=== PATIENT | male | born 1960 | race Two or more races ===

== ENCOUNTER 2016-05-21 06:42 | Emergency (ER) | payer OTHER ==
[2016-05-21] MEDS ORDERED: NORMAL SALINE 1000 ML 1,000 ML IV ONE ×2 (09:45)
--- NOTE | 2016-05-21 09:45 | ER Document Report ---
ED Blood Sugar Problem - General Chief Complaint: High Blood Sugar Stated Complaint: SUGAR PROBLEMS Time seen by provider: 09:45 Mode of Arrival: Ambulatory Information source: Patient Notes: He hasn't had his medications for 3 days he left it at the [facility]. He has prescriptions at the pharmacy that he can get. His ad operations intern is Dr. Santiago. takes 2000 metformin at once, glimiperide 4mg bid, and Toujeo nightly. TRAVEL OUTSIDE OF THE [place] IN LAST 30 DAYS: No - Related Data Allergies/Adverse Reactions: Penicillins Allergy (Unknown, Verified 05/21/16 08:18) Past Medical History - General Information source: Patient - Social History Smoking Status: Current Every Day Smoker Frequency of alcohol use: None Drug Abuse: None Lives with: Family Family History: Reviewed & Not Pertinent - Past Medical History Cardiac Medical History: Reports: Hx Hypercholesterolemia - no meds, Hx Hypertension Endocrine Medical History: Reports: Hx Diabetes Mellitus Type 2 Renal/ Medical History: Denies: Hx Peritoneal Dialysis Psychiatric Medical History: Reports: Hx Depression Past Surgical History: Reports: Hx Bowel Surgery - cancer, Hx Cholecystectomy - Immunizations Hx Diphtheria, Pertussis, Tetanus Vaccination: Yes Review of Systems - Review of Systems Constitutional: No symptoms reported EENT: No symptoms reported Cardiovascular: No symptoms reported Respiratory: No symptoms reported Gastrointestinal: No symptoms reported Genitourinary: No symptoms reported Male Genitourinary: No symptoms reported Musculoskeletal: No symptoms reported Skin: No symptoms reported Hematologic/Lymphatic: No symptoms reported Neurological/Psychological: No symptoms reported Physical Exam - Vital signs Vitals: Temp Pulse Resp BP Pulse Ox 98.0 F 90 18 127/87 H 97 05/21/16 06:49 05/21/16 06:49 05/21/16 06:49 05/21/16 06:49 05/21/16 06:49 Interpretation: Normal - General General appearance: Appears well, Alert - HEENT Head: Normocephalic, Atraumatic Eyes: Normal Pupils: PERRL Pharynx: Normal Neck: Supple - Respiratory Respiratory status: No respiratory distress Chest status: Nontender Breath sounds: Normal Chest palpation: Normal - Cardiovascular Rhythm: Regular Heart sounds: Normal auscultation Murmur: No - Abdominal Inspection: Normal Distension: No distension Bowel sounds: Normal Tenderness: Nontender Organomegaly: No organomegaly - Back Back: Normal, Nontender - Extremities General upper extremity: Normal inspection, Nontender, Normal color, Normal ROM , Normal temperature General lower extremity: Normal inspection, Nontender, Normal color, Normal ROM , Normal temperature, Normal weight bearing. No: Cyndi's sign - Neurological Neuro grossly intact: Yes Cognition: Normal Orientation: AAOx4 Sarath Coma Scale Eye Opening: Spontaneous Sarath Coma Scale Verbal: Oriented Sarath Coma Scale Motor: Obeys Commands Sarath Coma Scale Total: 15 Speech: Normal Motor strength normal: LUE, RUE, LLE, RLE Sensory: Normal - Psychological Associated symptoms: Normal affect, Normal mood - Skin Skin Temperature: Warm Skin Moisture: Dry Skin Color: Normal Skin irregularity: negative: Rash Course - Re-evaluation Re-evalutation: 05/21/16 09:[address] ribeiro about tx and disposition per [facility] guidelines. 05/21/16 11:39 glucose down, meds given, has prescriptions at pharmacy that he can fill since his meds will not be brought home by friend until tomorrow. - Vital Signs Vital signs: Temp Pulse Resp BP Pulse Ox 97.6 F 73 18 154/86 H 99 05/21/16 11:36 05/21/16 11:36 05/21/16 08:05 05/21/16 11:36 05/21/16 11:36 - Laboratory Result Diagrams: 05/21/16 08:57 05/21/16 08:57 Laboratory results interpreted by me: 05/21/16 05/21/16 05/21/16 06:56 08:57 09:43 Glucose 347 H POC Glucose 348 H 322 H AST 77 H ALT 116 H 05/21/16 11:02 Glucose POC Glucose 295 H AST ALT Discharge - Discharge Clinical Impression: Hyperglycemia Diabetes Qualifiers: Diabetes mellitus type: type 2 Diabetes mellitus complication status: without complication Diabetes mellitus intermediate frame tender insulin use: with mcc use Qualified Code(s): E11.9 - Type 2 diabetes mellitus without complications Condition: Good Disposition: HOME, SELF-CARE Instructions: Diabetes ([facility]) Additional Instructions: go directly to the pharmacy and get your medication since your friend is not coming till tomorrow with your insulin and oral medications Return to the emergency room any concerns Keep track closely on your glucose today. Forms: Return to Work
[2016-05-21 09:55] LABS: ABSOLUTE LYMPHOCYTES (AUTO) 1.3 10^3/uL (0.5-4.7); ABSOLUTE MONOCYTES (AUTO) 0.5 10^3/uL (0.1-1.4); ABSOLUTE NEUT (AUTO) 3.5 10^3/uL (1.7-8.2); BASOPHILS % (AUTO) 0.9 % (0-2); EOSINOPHILS % (AUTO) 0.8 % (0-6); HEMOGLOBIN 16.6 g/dL (13.5-17.0); HGB HCT DIFFERENCE 2.8; LYMPHOCYTES % (AUTO) 24.3 % (13-45); MEAN CORPUSCULAR HEMOGLOBIN 30.7 pg (27.0-33.4); MEAN CORPUSCULAR HGB CONC 35.4 g/dL (32.0-36.0); MEAN CORPUSCULAR VOLUME 87 fl (80-97); MONOCYTES % (AUTO) 9.2 % (3-13); RED BLOOD COUNT 5.41 10^6/uL (4.35-5.55); RED CELL DISTRIBUTION WIDTH 13.5 % (11.5-14.0); SEGMENTED NEUTROPHILS % (AUTO) 64.8 % (42-78); WHITE BLOOD COUNT 5.4 10^3/uL (4.0-10.5)
[2016-05-21 10:00] LABS: ALANINE AMINOTRANSFERASE 116 U/L (21-72); ALBUMIN 3.7 g/dL (3.5-5.0); ALKALINE PHOSPHATASE 105 U/L (38-126); ANION GAP 12 (5-19); ASPARTATE AMINO TRANSFERASE 77 U/L (17-59); BLOOD UREA NITROGEN 15 mg/dL (7-20); CALCIUM 9.1 mg/dL (8.4-10.2); CARBON DIOXIDE 25 mmol/L (22-30); CHLORIDE 100 mmol/L (98-107); CREATININE RESULT 0.69 mg/dL (0.52-1.25); GLUCOSE 347 mg/dL (75-110); POTASSIUM 3.6 mmol/L (3.6-5.0); SODIUM 137.3 mmol/L (137-145)
[2016-05-21] MEDS ORDERED: METFORMIN HCL 500 MG TABLET PO ONE (10:07)
[2016-05-21] MEDS ORDERED: GLIMEPIRIDE 4 MG TABLET PO ONE (10:11)
[2016-05-21 11:53] VITALS: BP 154/86
== END 2016-05-21 11:42 | disposition home or self-care (01) ==
LOC: ER 06:42
DX: E11.65 Type 2 diabetes mellitus with hyperglycemia (principal); Z79.4 Long term (current) use of insulin; Z79.84 Long term (current) use of oral hypoglycemic drugs; F17.200 Nicotine dependence, unspecified, uncomplicated; I10 Essential (primary) hypertension; Z88.0 Allergy status to penicillin
CPT/HCPCS: 99284; 96360; 36415; 82962; 85025; 80053; J3490; J7030

== ENCOUNTER 2016-09-08 04:14 | Emergency (ER) | payer SELFPAY ==
[2016-09-08 05:53] LABS: ABSOLUTE EOSINOPHILS # (AUTO) 0.1 10^3/uL (0.0-0.6); ABSOLUTE LYMPHOCYTES (AUTO) 2.5 10^3/uL (0.5-4.7); ABSOLUTE MONOCYTES (AUTO) 0.4 10^3/uL (0.1-1.4); ABSOLUTE NEUT (AUTO) 2.8 10^3/uL (1.7-8.2); BASOPHILS % (AUTO) 0.8 % (0-2); EOSINOPHILS % (AUTO) 1.9 % (0-6); HEMATOCRIT 43.1 % (37.9-51.0); HGB HCT DIFFERENCE 1.9; MEAN CORPUSCULAR HEMOGLOBIN 30.1 pg (27.0-33.4); MEAN CORPUSCULAR HGB CONC 34.9 g/dL (32.0-36.0); MEAN CORPUSCULAR VOLUME 86 fl (80-97); MONOCYTES % (AUTO) 7.4 % (3-13); RED BLOOD COUNT 4.99 10^6/uL (4.35-5.55); RED CELL DISTRIBUTION WIDTH 13.5 % (11.5-14.0); SEGMENTED NEUTROPHILS % (AUTO) 47.9 % (42-78); WHITE BLOOD COUNT 5.9 10^3/uL (4.0-10.5)
[2016-09-08 06:28] LABS: ANION GAP 11 (5-19); BLOOD UREA NITROGEN 16 mg/dL (7-20); CALCIUM 9.2 mg/dL (8.4-10.2); CARBON DIOXIDE 26 mmol/L (22-30); CHLORIDE 99 mmol/L (98-107); CREATININE RESULT 0.66 mg/dL (0.52-1.25); POTASSIUM 3.7 mmol/L (3.6-5.0); SODIUM 135.7 mmol/L (137-145)
[2016-09-08 06:35] LABS: GLUCOSE 564 mg/dL (75-110)
--- NOTE | 2016-09-08 06:35 | ER Document Report ---
ED Blood Sugar Problem - General Mode of Arrival: Ambulatory Information source: Patient TRAVEL OUTSIDE OF THE [place] IN LAST 30 DAYS: No - HPI Patient complains to provider of: High Blood Sugar Onset: This morning Associated symptoms: Other - see notes above <ISIDRO WATSON - Last Filed: 09/08/16 07:12> <WAQAS MARSHALL - Last Filed: 09/08/16 13:55> - General Chief Complaint: High Blood Sugar Stated Complaint: HIGH BLOOD SUGAR Time Seen by Provider: 09/08/16 06:00 Notes: 56 year old male with history of insulin dependent diabetes mellitus type II, hypertension, hyperlipidemia, and restless leg syndrome presents to the ED complaining of high blood sugar (>600) that started earlier this morning. Patient states that he felt 'out of sync' so he checked his blood sugar and saw that it was >600. Patient reports that he previously was checking his blood sugar 4 times a day, but has not been checking recently because of 'work stress ' and realizing that his has left him and moved on. Patient denies nausea, vomiting, or diarrhea. Patient is on Glyparamide, Metformin, and Tuojeo (once a day). Patient states that he took his insulin yesterday afternoon, but did not take it this morning after seeing his blood sugar in the 600s. Patient reports that he has run out of Glyparamide and Metformin, and is unable to get them filled because of tight financial situation. Primary Care: [facility] Washer: Dr. Santiago; [place] (ISIDRO WATSON) - Related Data Allergies/Adverse Reactions: Penicillins Allergy (Unknown, Verified 09/08/16 04:22) Past Medical History - General Information source: Patient - Social History Smoking Status: Unknown if Ever Smoked Family History: Reviewed & Not Pertinent - Past Medical History Cardiac Medical History: Reports: Hx Hypercholesterolemia - no meds, Hx Hypertension Endocrine Medical History: Reports: Hx Diabetes Mellitus Type 2 Renal/ Medical History: Denies: Hx Peritoneal Dialysis Psychiatric Medical History: Reports: Hx Depression Past Surgical History: Reports: Hx Bowel Surgery - cancer, Hx Cholecystectomy - Immunizations Hx Diphtheria, Pertussis, Tetanus Vaccination: Yes <ISIDRO WATSON - Last Filed: 09/08/16 07:12> Review of Systems - Review of Systems Constitutional: No symptoms reported EENT: No symptoms reported Cardiovascular: See HPI, Other - elevated blood sugar >600 Respiratory: No symptoms reported Gastrointestinal: No symptoms reported. denies: Diarrhea, Nausea, Vomiting Genitourinary: No symptoms reported Male Genitourinary: No symptoms reported Musculoskeletal: No symptoms reported Skin: No symptoms reported Hematologic/Lymphatic: No symptoms reported Neurological/Psychological: No symptoms reported <ISIDRO WATSON - Last Filed: 09/08/16 07:12> Physical Exam - General General appearance: Alert In distress: None - HEENT Head: Normocephalic, Atraumatic Eyes: Normal Extraocular movements intact: Yes Pupils: PERRL - Respiratory Respiratory status: No respiratory distress Breath sounds: Normal - Cardiovascular Rhythm: Regular Heart sounds: Normal auscultation - Abdominal Inspection: Normal Distension: No distension Tenderness: Nontender. No: Guarding, Rebound - Back Back: Normal - Extremities General upper extremity: Normal inspection, Normal ROM General lower extremity: Normal inspection, Normal ROM - Neurological Neuro grossly intact: Yes Cognition: Normal Orientation: AAOx4 Sarath Coma Scale Eye Opening: Spontaneous Sarath Coma Scale Verbal: Oriented Sarath Coma Scale Motor: Obeys Commands Sarath Coma Scale Total: 15 Speech: Normal - Psychological Associated symptoms: Normal affect, Normal mood - Skin Skin Temperature: Warm Skin Moisture: Dry Skin Color: Normal <FLORA WATSONUR - Last Filed: 09/08/16 07:12> Course - Laboratory Result Diagrams: 09/08/16 05:33 09/08/16 05:33 <SHIRLEYISIDRO - Last Filed: 09/08/16 07:12> - Laboratory Result Diagrams: 09/08/16 05:33 09/08/16 05:33 <WAQAS MARSHALL - Last Filed: 09/08/16 13:55> - Re-evaluation Re-evalutation: 09/08/16 07:07 Patient presents emergency department chief complaint of elevated blood glucose. Says he is out of 2 of his oral hypoglycemics but is been taking his insulin. Primary care physician is invited. He denies any fevers chills cough chest pain shortness of breath nausea vomiting abdominal pain diarrhea constipation urinary symptoms fevers chills or change in appetite. On examination he is well-appearing nontoxic in no acute distress HEENT heart lungs abdomen soft abdomen is soft no tenderness guarding rebound rigidity. Blood sugar is 600 and is not in DKA with him given 10 units regular subcu insulin. In addition that the rest of his labs are stable. Not actively vomiting in his belly is soft nontender. I have given him a family doctor for follow-up status post call them first thing tomorrow morning schedule follow-up appointment to treat and maintain his diabetes medications and additional chronic conditions and discussed reasons for ED return sooner (WAQAS MARSHALL) - Vital Signs Vital signs: Temp Pulse Resp BP Pulse Ox 74 16 145/91 H 98 09/08/16 04:21 09/08/16 07:19 09/08/16 06:21 09/08/16 07:19 - Laboratory Laboratory results interpreted by me: 09/08/16 09/08/16 05:33 05:33 Sodium 135.7 L Glucose 564 H* Urine Glucose (UA) >=500 H Discharge <ISIDRO WATSON - Last Filed: 09/08/16 07:12> <WAQAS MARSHALL - Last Filed: 09/08/16 13:55> - Discharge Clinical Impression: hyperglycemia Condition: Stable Disposition: HOME, SELF-CARE Additional Instructions: Hyperglycemia (High Blood Sugar) You have an abnormally high blood sugar. Not all high blood sugar requires long-term treatment. High blood sugar can be due to medications, , or the stress of illness. (These cases are "borderline diabetes.") If the doctor feels your high blood sugar might resolve with time, you may not require treatment now. You will be scheduled for further evaluation. It's very important that you follow through, to see if the blood sugar returns to normal levels. Uncontrolled high blood sugar leads to early heart disease, strokes, nerve damage, eye damage, and kidney damage. Call the physician if there is faintness, excess sleepiness, or very rapid breathing. Referrals: [facility] [Provider Group] (call in a.m. tomorrow to schedule follow-up appointment in 3-4 days must get refills on all your diabetic medications and consistently seeing a regular primary care physician. Return for increasing worsening or new symptoms) Scribe Attestation: 09/08/16 07:07 I personally performed the services described in the documentation reviewed the documentation recorded by my scribe in my presence and it accurately and completely records my words and actions (WAQAS MARSHALL) Scribe Documentation - Scribe Written by Scribe:: Kirt Larson, 09/08/2016 0715 acting as scribe for :: Partha <ISIDRO WATSON - Last Filed: 09/08/16 07:12>
[2016-09-08 06:43] LABS: APPEARANCE,URINE CLEAR; BILIRUBIN,URINE NEGATIVE (NEGATIVE); GLUCOSE, URINE >=500 mg/dL (NEGATIVE); KETONES,URINE NEGATIVE (NEGATIVE); LEUKOCYTE ESTERASE,URINE NEGATIVE (NEGATIVE); NITRITE,URINE NEGATIVE (NEGATIVE); PROTEIN,URINE NEGATIVE (NEGATIVE); UROBILINOGEN,URINE NEGATIVE mg/dL (<2.0)
[2016-09-08 06:57] VITALS: BP 145/91
[2016-09-08] MEDS ORDERED: INSULIN REG, HUMAN 100 UNIT/ML 3 ML VIAL (PYX) SUBCUT ONE (07:03)
== END 2016-09-08 07:38 | disposition home or self-care (01) ==
LOC: ER 04:14
DX: E11.65 Type 2 diabetes mellitus with hyperglycemia (principal); I10 Essential (primary) hypertension; E78.5 Hyperlipidemia, unspecified; G25.81 Restless legs syndrome; Z79.899 Other long term (current) drug therapy
CPT/HCPCS: 99283; 36415; 82962; 85025; 80048; 81001; J1815

== ENCOUNTER 2016-11-22 02:45 | Emergency (ER) | payer OTHER ==
[2016-11-22 02:54] VITALS: BP 166/90
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
[2016-11-22] MEDS ORDERED: KETOROLAC TROMETHAMINE INJ/PF 30 MG/1 ML SDV IM ONE (03:39)
== END 2016-11-22 03:57 | disposition home or self-care (01) ==
LOC: ER 02:45
DX: M79.1 Myalgia (principal); V87.7XXA Person injured in collision between other specified motor vehicles (traffic), initial encounter; E78.00 Pure hypercholesterolemia, unspecified; I10 Essential (primary) hypertension; E11.9 Type 2 diabetes mellitus without complications; Z90.49 Acquired absence of other specified parts of digestive tract
CPT/HCPCS: 99283; 96372; J1885

== ENCOUNTER 2016-11-25 04:27 | Emergency (ER) | payer OTHER ==
[2016-11-25] MEDS ORDERED: HYDROCODONE/ACETAMINOPHEN 5-325 MG 6 TAB/DSPK PO PRN (06:56)
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
[2016-11-25 07:51] VITALS: BP 158/100
== END 2016-11-25 07:52 | disposition home or self-care (01) ==
LOC: ER 04:27
DX: S16.1XXA Strain of muscle, fascia and tendon at neck level, initial encounter (principal); R51 Headache; M25.552 Pain in left hip; F17.200 Nicotine dependence, unspecified, uncomplicated; E78.00 Pure hypercholesterolemia, unspecified; I10 Essential (primary) hypertension; E11.9 Type 2 diabetes mellitus without complications; Z88.0 Allergy status to penicillin; Z90.49 Acquired absence of other specified parts of digestive tract; V89.2XXA Person injured in unspecified motor-vehicle accident, traffic, initial encounter
CPT/HCPCS: 99284; L0120

== ENCOUNTER 2017-01-10 20:06 | Emergency (ER) | payer OTHER ==
--- NOTE | 2017-01-10 20:33 | ER Document Report ---
ED Medical Screen (RME) - General Chief Complaint: High Blood Sugar Stated Complaint: BLOOD SUGAR PROBLEMS Time Seen by Provider: 01/10/17 20:13 Notes: Patient is a 56-year-old male who presents emergency department complaining of sudden onset headache at approximately 3 PM this evening. He was sitting in his home relaxing when he had the sudden onset headache in the back of his head radiating behind his left eye. He describes it as an ice pick going into his eye. States he has never had a headache like this before. He also states that he has had elevated blood sugars at home since he ran out of his to alf. Patient states that his blood sugars have been about 500s and he has not been able to manage it at home with Lantus alone. He does admit to urinary frequency but denies any lethargy, nausea, vomiting, abdominal pain. TRAVEL OUTSIDE OF THE [place] IN LAST 30 DAYS: No - Related Data Allergies/Adverse Reactions: Penicillins Allergy (Unknown, Verified 11/25/16 07:23) Past Medical History - Social History Chew tobacco use (# tins/day): No Frequency of alcohol use: None Drug Abuse: None - Past Medical History Cardiac Medical History: Reports: Hx Hypercholesterolemia - no meds, Hx Hypertension Endocrine Medical History: Reports: Hx Diabetes Mellitus Type 1, Hx Diabetes Mellitus Type 2 Renal/ Medical History: Denies: Hx Peritoneal Dialysis Psychiatric Medical History: Reports: Hx Depression Past Surgical History: Reports: Hx Bowel Surgery - cancer, Hx Cholecystectomy - Immunizations Hx Diphtheria, Pertussis, Tetanus Vaccination: Yes Physical Exam - Vital signs Vitals: Temp Pulse Resp BP Pulse Ox 98.6 F 82 14 189/101 H 97 01/10/17 20:12 01/10/17 20:12 01/10/17 20:12 01/10/17 20:12 01/10/17 20:12 - General General appearance: Appears well, Alert In distress: None - HEENT Head: Normocephalic, Atraumatic Eyes: Normal Extraocular movements intact: Yes Pupils: PERRL - Respiratory Respiratory status: No respiratory distress Chest status: Nontender Breath sounds: Normal Chest palpation: Normal - Cardiovascular Rhythm: Regular Heart sounds: Normal auscultation, S1 appreciated, S2 appreciated Pulses: Normal: Radial Normal capillary refill: Yes - Neurological Orientation: AAOx4 Sarath Coma Scale Eye Opening: Spontaneous Lillie Coma Scale Verbal: Oriented Lillie Coma Scale Motor: Obeys Commands Lillie Coma Scale Total: 15 Course - Vital Signs Vital signs: Temp Pulse Resp BP Pulse Ox 98.6 F 82 14 200/102 H 97 01/10/17 20:12 01/10/17 20:12 01/10/17 20:12 01/10/17 20:27 01/10/17 20:12
--- NOTE | 2017-01-10 20:59 | RADIOLOGY REPORT (SQ) ---
EXAM DESCRIPTION: CT HEAD WITHOUT COMPLETED DATE/TIME: 01/10/2017 8:34 pm REASON FOR STUDY: sudden onset headache 3pm, HTN COMPARISON: 04/24/2015 TECHNIQUE: Axial images acquired through the brain without intravenous contrast. Images reviewed wi th bone, brain and subdural windows. Images stored on PACS. All CT scanners at this facility use dose modulation, iterative reconstruction, and/or weight based d osing when appropriate to reduce radiation dose to as low as reasonably achievable (ALARA). [facility]: Dose Right [facility]: CareDose [facility]: Dose Right [facility]: Teradose 4D [facility]: Technitrol RADIATION DOSE: Up-to-date CT equipment and radiation dose reduction techniques were employed. CTDIv ol: 64.6 mGy. DLP: 1163 mGy-cm. mGy. LIMITATIONS: None. FINDINGS: VENTRICLES: Normal size and contour. CEREBRUM: No masses. No hemorrhage. No midline shift. No evidence for acute infarction. Normal gra y/white matter differentiation. No areas of low density in the white matter. CEREBELLUM: No masses. No hemorrhage. No alteration of density. No evidence for acute infarction. EXTRAAXIAL SPACES: No fluid collections. No masses. ORBITS AND GLOBE: No intra- or extraconal masses. Normal contour of globe without masses. CALVARIUM: No fracture. PARANASAL SINUSES: No fluid or mucosal thickening. SOFT TISSUES: No mass or hematoma. OTHER: No other significant finding. IMPRESSION: NORMAL BRAIN CT WITHOUT CONTRAST. EVIDENCE OF ACUTE STROKE: NO. COMMENT: Quality ID # [id number]: Final reports with documentation of one or more dose reduction techniques (e.g., Automated exposure control, adjustment of the mA and/or kV according to patient size, use of iterative reconstruction technique) TECHNICAL DOCUMENTATION: JOB ID: [id number]- All Rights Reserved
[2017-01-10 21:20] LABS: ABSOLUTE EOSINOPHILS # (AUTO) 0.1 10^3/uL (0.0-0.6); ABSOLUTE LYMPHOCYTES (AUTO) 1.3 10^3/uL (0.5-4.7); ABSOLUTE MONOCYTES (AUTO) 0.4 10^3/uL (0.1-1.4); ABSOLUTE NEUT (AUTO) 3.9 10^3/uL (1.7-8.2); BASOPHILS % (AUTO) 0.8 % (0-2); HEMATOCRIT 45.1 % (37.9-51.0); HEMOGLOBIN 16.1 g/dL (13.5-17.0); HGB HCT DIFFERENCE 3.2; LYMPHOCYTES % (AUTO) 22.2 % (13-45); MEAN CORPUSCULAR HEMOGLOBIN 31.1 pg (27.0-33.4); MEAN CORPUSCULAR HGB CONC 35.6 g/dL (32.0-36.0); MEAN CORPUSCULAR VOLUME 88 fl (80-97); MONOCYTES % (AUTO) 7.8 % (3-13); RED BLOOD COUNT 5.16 10^6/uL (4.35-5.55); RED CELL DISTRIBUTION WIDTH 14.1 % (11.5-14.0); SEGMENTED NEUTROPHILS % (AUTO) 67.2 % (42-78); WHITE BLOOD COUNT 5.7 10^3/uL (4.0-10.5)
[2017-01-10 21:28] LABS: ALANINE AMINOTRANSFERASE 105 U/L (21-72); ALBUMIN 3.7 g/dL (3.5-5.0); ALKALINE PHOSPHATASE 120 U/L (38-126); ANION GAP 10 (5-19); ASPARTATE AMINO TRANSFERASE 117 U/L (17-59); BILIRUBIN,DIRECT 0.5 mg/dL (0.0-0.4); BLOOD UREA NITROGEN 13 mg/dL (7-20); CARBON DIOXIDE 28 mmol/L (22-30); CHLORIDE 98 mmol/L (98-107); CREATININE RESULT 0.61 mg/dL (0.52-1.25); POTASSIUM 3.6 mmol/L (3.6-5.0); SODIUM 135.6 mmol/L (137-145); TOTAL PROTEIN 6.6 g/dL (6.3-8.2)
[2017-01-10] MEDS ORDERED: NORMAL SALINE 1000 ML 1,000 ML IV ONE (21:28)
[2017-01-10] MEDS ORDERED: PROCHLORPERAZINE EDISYLATE INJ 10 MG/2 ML VIAL IV ONE (21:30)
[2017-01-10] MEDS ORDERED: DIPHENHYDRAMINE HCL 50 MG/ML VIAL IV ONE (21:30)
[2017-01-10] MEDS ORDERED: KETOROLAC TROMETHAMINE INJ/PF 30 MG/1 ML SDV IV ONE (21:31)
--- NOTE | 2017-01-10 21:35 | ER Document Report ---
ED General - General Chief Complaint: High Blood Sugar Stated Complaint: BLOOD SUGAR PROBLEMS Time Seen by Provider: 01/10/17 20:13 Notes: Patient is a 56-year-old male with a past medical history of insulin-dependent type 2 diabetes who presents with concerns of hypoglycemia as well as a headache. Patient states that he is currently out of one of his types of insulin and has had elevated blood sugars since running out of it. He has a history of similar episodes in the past due to difficulty obtaining his medications. He states that when his blood sugars are high, he often develops a headache. He notes that today he has a constant, stabbing, severe pain to his left eye that radiates to the back of his scalp. States this is a typical headache for him in the setting of hypoglycemia. States headache was relatively abrupt in onset and became progressively worse after that. He denies any focal weakness or numbness. No vomiting or constitutional symptoms. He has not had any fever. He has not seen his primary care doctor regarding today's concerns. TRAVEL OUTSIDE OF THE [place] IN LAST 30 DAYS: No - Related Data Allergies/Adverse Reactions: Penicillins Allergy (Unknown, Verified 11/25/16 07:23) Past Medical History - General Information source: Patient - Social History Smoking Status: Current Every Day Smoker Chew tobacco use (# tins/day): No Frequency of alcohol use: None Drug Abuse: None Family History: Reviewed & Not Pertinent - Past Medical History Cardiac Medical History: Reports: Hx Hypercholesterolemia - no meds, Hx Hypertension Endocrine Medical History: Reports: Hx Diabetes Mellitus Type 1, Hx Diabetes Mellitus Type 2 Renal/ Medical History: Denies: Hx Peritoneal Dialysis Psychiatric Medical History: Reports: Hx Depression Past Surgical History: Reports: Hx Bowel Surgery - cancer, Hx Cholecystectomy - Immunizations Hx Diphtheria, Pertussis, Tetanus Vaccination: Yes Review of Systems - Review of Systems Notes: Constitutional: Negative for fever. HENT: Negative for sore throat. Eyes: Negative for visual changes. Cardiovascular: Negative for chest pain. Respiratory: Negative for shortness of breath. Gastrointestinal: Negative for abdominal pain, vomiting or diarrhea. Genitourinary: Negative for dysuria. Musculoskeletal: Negative for back pain. Skin: Negative for rash. Neurological: Positive for headache 10 point ROS negative except as marked above and in HPI. Physical Exam - Vital signs Vitals: Temp Pulse Resp BP Pulse Ox 98.6 F 82 14 189/101 H 97 01/10/17 20:12 01/10/17 20:12 01/10/17 20:12 01/10/17 20:12 01/10/17 20:12 Interpretation: Hypertensive Notes: PHYSICAL EXAMINATION: GENERAL: Well-appearing, well-nourished and in no acute distress. HEAD: Atraumatic, normocephalic. EYES: Pupils equal round and reactive to light, extraocular movements intact, sclera anicteric, conjunctiva are normal. ENT: nares patent, oropharynx clear without exudates. Moist mucous membranes. NECK: Normal range of motion, supple without lymphadenopathy LUNGS: Breath sounds clear to auscultation bilaterally and equal. No wheezes rales or rhonchi. HEART: Regular rate and rhythm without murmurs ABDOMEN: Soft, nontender, normoactive bowel sounds. No guarding, no rebound. No masses appreciated. EXTREMITIES: Normal range of motion, no pitting or edema. No cyanosis. NEUROLOGICAL: Face symmetric. Tongue protrudes midline. Extraocular motions intact. Pupils are 2 mm and equally reactive. Normal speech, normal gait. 5 out of 5 strength in both the distal and proximal upper and lower extremities bilaterally. Sensation is grossly intact throughout. Finger to nose testing normal. Pronator drift normal. PSYCH: Normal mood, normal affect. SKIN: Warm, Dry, normal turgor, no rashes or lesions noted. Course - Re-evaluation Re-evalutation: 01/10/17 21:32 Presentation of asymptomatic hyperglycemia. There is no evidence of HHS or diabetic ketoacidosis on laboratories or based on clinical history. Patient's vitals are within normal limits. They deny any acute focal complaints. Treatment with insulin and IV fluids given here in the emergency department with appropriate response of the blood sugar. No infectious symptoms or complaints of chest pain to suggest ACS or infectious etiology of his hypoglycemia. Patient is certain the source is that he ran out of 1 of his types of insulin, tuejeo. Patient also complained of an acute onset headache which she states her approximate 3:00. Patient has long-standing history of headaches that are identical to this. Headache was not maximal in onset, patient has no focal neurologic deficits, no nuchal rigidity, vital signs within normal limits, no papilledema, and patient is overall well in appearance. Based on clinical history and examination I do not suspect an acute subarachnoid hemorrhage, dural venous sinus thrombosis, acute meningitis, or intercranial mass. Given my low clinical suspicion for any acute life- threatening etiology, I do not feel advanced neuro imaging or laboratory testing is indicated at this time. However, in triage CT the head was obtained based on initial concern of an abrupt onset headache. 01/10/17 22:54 Patient is tolerating oral intake without difficulty. Blood glucose below 500, range is acceptable for discharge. Patient will get a refill of his insulin tomorrow. His headache has resolved. At this time will discharge with return precautions and follow-up recommendations. Verbal discharge instructions given a the bedside and opportunity for questions given. Medication warnings reviewed. Patient is in agreement with this plan and has verbalized understanding of return precautions and the need for primary care follow-up in the next 24-72 hours. - Vital Signs Vital signs: Temp Pulse Resp BP Pulse Ox 98.6 F 82 21 H 170/99 H 95 01/10/17 20:12 01/10/17 20:12 01/10/17 23:01 01/10/17 23:30 01/10/17 23:30 - Laboratory Result Diagrams: 01/10/17 20:53 01/10/17 20:53 Laboratory results interpreted by me: 01/10/17 01/10/17 01/10/17 20:30 20:53 20:53 RDW 14.1 H Sodium 135.6 L Glucose 483 H* POC Glucose 484 H* Direct Bilirubin 0.5 H AST 117 H ALT 105 H Urine Glucose (UA) 01/10/17 01/10/17 21:20 23:12 RDW Sodium Glucose POC Glucose 356 H Direct Bilirubin AST ALT Urine Glucose (UA) >=500 H - Diagnostic Test Radiology reviewed: Image reviewed, Reports reviewed Radiology results interpreted by me: 01/10/17 21:35 CT head: No acute intracranial bleed or evidence of subarachnoid hemorrhage - EKG Interpretation by Me Additional EKG results interpreted by me: 01/11/17 03:48 Sinus rhythm. Rate 78. No ST elevations or depressions. QTC is 442. Discharge - Discharge Clinical Impression: Hyperglycemia, Essential hypertension Headache Qualifiers: Headache type: unspecified Headache chronicity pattern: acute headache Intractability: not intractable Qualified Code(s): R51 - Headache Condition: Good Disposition: HOME, SELF-CARE Additional Instructions: You need to followup urgently with your primary care doctor as your blood sugars were dangerously high today. You did not have any evidence of a dangerous condition associated with these blood sugars at this time. However, it is very important that you get your blood sugars under control. Please take all of your medications exactly as directed. You should avoid foods that are high in carbohydrates and sugary foods. Please return to emergency department immediately if you develop weakness, persistent vomiting, confusion, or any other symptoms that are concerning to you.
[2017-01-10 21:39] LABS: GLUCOSE 483 mg/dL (75-110)
[2017-01-10] MEDS ORDERED: INSULIN REG, HUMAN 100 UNIT/ML 3 ML VIAL (PYX) SUBCUT ONE (22:06)
[2017-01-10 22:31] LABS: APPEARANCE,URINE CLEAR; BILIRUBIN,URINE NEGATIVE (NEGATIVE); GLUCOSE, URINE >=500 mg/dL (NEGATIVE); KETONES,URINE NEGATIVE (NEGATIVE); LEUKOCYTE ESTERASE,URINE NEGATIVE (NEGATIVE); NITRITE,URINE NEGATIVE (NEGATIVE); PROTEIN,URINE NEGATIVE (NEGATIVE); URINE SPECIFIC GRAVITY 1.031; UROBILINOGEN,URINE NEGATIVE mg/dL (<2.0)
[2017-01-10] MEDS ORDERED: PRAMIPEXOLE DI-HCL 0.5 MG TABLET PO ONE (22:53)
[2017-01-10] MEDS ORDERED: PRAMIPEXOLE DI-HCL 0.5 MG TABLET ONE (23:18)
[2017-01-10 23:51] VITALS: BP 170/99
--- NOTE | 2017-01-11 13:05 | EKG REPORT ---
SEVERITY:- ABNORMAL ECG - SINUS RHYTHM PROBABLE LEFT ATRIAL ABNORMALITY PROBABLE LEFT VENTRICULAR HYPERTROPHY : Confirmed by: Ben Melendez 11-Jan-2017 13:04:03
== END 2017-01-10 23:45 | disposition home or self-care (01) ==
LOC: ER 20:06
DX: E11.65 Type 2 diabetes mellitus with hyperglycemia (principal); R51 Headache; I10 Essential (primary) hypertension; Z79.4 Long term (current) use of insulin; F17.200 Nicotine dependence, unspecified, uncomplicated
CPT/HCPCS: 93005; 99284; 96361; 96374; 96375; 36415; 82962; 85025; 80053; 81001; 84484; 70450; 93010; J1200; J1885; J1815; J0780; J3490; J7030

== ENCOUNTER 2017-02-08 18:18 | Emergency (ER) | payer SELFPAY ==
[2017-02-08 18:27] VITALS: BP 133/82
[2017-02-08] MEDS ORDERED: NORMAL SALINE 1000 ML 1,000 ML IV PRN (18:27)
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
[2017-02-08 19:12] LABS: VENOUS BLOOD BASE EXCESS -0.7 mmol/L; VENOUS BLOOD HCO3 25.4 mmol/L (20-32); VENOUS BLOOD PCO2 46.8 mmHg (35-63); VENOUS BLOOD PH 7.35 (7.30-7.42)
[2017-02-08 19:13] LABS: ABSOLUTE BASOPHILS # (AUTO) 0.1 10^3/uL (0.0-0.2); ABSOLUTE EOSINOPHILS # (AUTO) 0.1 10^3/uL (0.0-0.6); ABSOLUTE LYMPHOCYTES (AUTO) 2.8 10^3/uL (0.5-4.7); ABSOLUTE MONOCYTES (AUTO) 0.3 10^3/uL (0.1-1.4); EOSINOPHILS % (AUTO) 1.5 % (0-6); HEMATOCRIT 47.1 % (37.9-51.0); HEMOGLOBIN 16.4 g/dL (13.5-17.0); HGB HCT DIFFERENCE 2.1; LYMPHOCYTES % (AUTO) 44.6 % (13-45); MEAN CORPUSCULAR HEMOGLOBIN 30.4 pg (27.0-33.4); MEAN CORPUSCULAR HGB CONC 34.9 g/dL (32.0-36.0); MEAN CORPUSCULAR VOLUME 87 fl (80-97); MONOCYTES % (AUTO) 5.1 % (3-13); RED BLOOD COUNT 5.41 10^6/uL (4.35-5.55); RED CELL DISTRIBUTION WIDTH 13.8 % (11.5-14.0); SEGMENTED NEUTROPHILS % (AUTO) 47.8 % (42-78); WHITE BLOOD COUNT 6.3 10^3/uL (4.0-10.5)
[2017-02-08 19:15] LABS: APPEARANCE,URINE CLEAR; BILIRUBIN,URINE NEGATIVE (NEGATIVE); GLUCOSE, URINE >=500 mg/dL (NEGATIVE); KETONES,URINE 80 mg/dL (NEGATIVE); LEUKOCYTE ESTERASE,URINE NEGATIVE (NEGATIVE); NITRITE,URINE NEGATIVE (NEGATIVE); PROTEIN,URINE NEGATIVE (NEGATIVE); URINE SPECIFIC GRAVITY 1.036; UROBILINOGEN,URINE NEGATIVE mg/dL (<2.0)
--- NOTE | 2017-02-08 19:29 | ER Document Report ---
ED General - General Chief Complaint: High Blood Sugar Stated Complaint: BLOOD SUGAR ISSUES Time Seen by Provider: 02/08/17 18:27 Mode of Arrival: Ambulatory Information source: Patient Notes: Patient presents complaining of increased stress recently, anxiety symptoms and elevated blood sugar. Patient states he has his NovoLog insulin but is out of his Lantus which he takes every morning. Patient states he has been of his Lantus for the past 2 weeks. Patient additionally reports increased anxiety and stress due to the fact that his girlfriend was recently arrested and he has not been able to get her bonded due to the [place]erson. Patient also reports recently moving and starting a new job. Patient does have an appointment with his primary doctor tomorrow for recheck. Patient denies any suicidal or homicidal ideations. Patient does complain of difficulty sleeping over the past 3 days that he attributes to his anxiety symptoms. TRAVEL OUTSIDE OF THE [place] IN LAST 30 DAYS: No - HPI Onset: Other - Anxiety symptoms 3 days, out of insulin 2 weeks Onset/Duration: Persistent Quality of pain: No pain Pain Level: Denies Associated symptoms: Nausea - Occasional nausea and vomiting, none at this time. denies: Chest pain, Nonproductive cough, Diarrhea, Fever, Headache, Sore throat, Sweating, Weakness Exacerbated by: Denies Relieved by: Denies Similar symptoms previously: Yes Recently seen / treated by doctor: No - Related Data Allergies/Adverse Reactions: Penicillins Allergy (Unknown, Verified 11/25/16 07:23) Past Medical History - General Information source: Patient - Social History Smoking Status: Current Every Day Smoker Occupation: retail Lives with: Spouse/Significant other Family History: Reviewed & Not Pertinent Patient has suicidal ideation: No Patient has homicidal ideation: No - Past Medical History Cardiac Medical History: Reports: Hx Hypercholesterolemia - no meds, Hx Hypertension Endocrine Medical History: Reports: Hx Diabetes Mellitus Type 1 Renal/ Medical History: Denies: Hx Peritoneal Dialysis Psychiatric Medical History: Reports: Hx Anxiety, Hx Depression Past Surgical History: Reports: Hx Bowel Surgery - cancer, Hx Cholecystectomy - Immunizations Hx Diphtheria, Pertussis, Tetanus Vaccination: Yes Review of Systems - Review of Systems Constitutional: No symptoms reported. denies: Fever, Recent illness EENT: No symptoms reported Cardiovascular: No symptoms reported. denies: Chest pain, Dizziness, Lightheaded Respiratory: No symptoms reported. denies: Cough, Short of breath Gastrointestinal: Nausea. denies: Abdominal pain, Diarrhea Genitourinary: No symptoms reported. denies: Dysuria Male Genitourinary: No symptoms reported Musculoskeletal: No symptoms reported. denies: Back pain Skin: No symptoms reported Hematologic/Lymphatic: No symptoms reported Neurological/Psychological: Anxiety. denies: Dementia, Homicidal ideation, Headaches, Suicidal ideation Physical Exam - Vital signs Vitals: Temp Pulse Resp BP Pulse Ox 98.0 F 94 16 133/82 H 98 02/08/17 18:20 02/08/17 18:20 02/08/17 18:20 02/08/17 18:20 02/08/17 18:20 - General General appearance: Appears well, Alert In distress: None - HEENT Head: Normocephalic, Atraumatic Eyes: Normal Conjunctiva: Normal Nasal: Normal Mouth/Lips: Normal Mucous membranes: Normal Pharynx: Normal Neck: Normal, Supple. No: Lymphadenopathy - Respiratory Respiratory status: No respiratory distress Chest status: Nontender Breath sounds: Normal. No: Rales, Rhonchi, Stridor, Wheezing Chest palpation: Normal - Cardiovascular Rhythm: Regular Heart sounds: S1 appreciated, S2 appreciated Murmur: No - Abdominal Inspection: Normal Distension: No distension Bowel sounds: Normal Tenderness: Nontender Organomegaly: No organomegaly - Back Back: Normal, Nontender. No: CVA tenderness - Extremities General upper extremity: Normal inspection, Normal ROM. No: Edema General lower extremity: Normal inspection, Normal ROM. No: Edema - Neurological Neuro grossly intact: Yes Cognition: Normal Sarath Coma Scale Eye Opening: Spontaneous Sarath Coma Scale Verbal: Oriented Sarath Coma Scale Motor: Obeys Commands Sarath Coma Scale Total: 15 - Psychological Associated symptoms: Normal affect, Normal mood - Skin Skin Temperature: Warm Skin Moisture: Dry Skin Color: Normal Course - Re-evaluation Re-evalutation: 02/08/17 21:18 Patient has been eating crackers as he is currently hungry. Patient without any nausea or vomiting. Patient's blood sugar is trending downward, patient does have an appointment with his primary doctor tomorrow to get his medications refilled. Patient not suicidal or homicidal at this time. Discussed worsening signs or symptoms that patient should return immediately for. Patient verbalized understanding and agrees with plan of care. - Vital Signs Vital signs: Temp Pulse Resp BP Pulse Ox 98.0 F 94 16 133/82 H 98 02/08/17 18:20 02/08/17 18:20 02/08/17 18:20 02/08/17 18:20 02/08/17 18:20 - Laboratory Result Diagrams: 02/08/17 18:58 02/08/17 18:58 Laboratory results interpreted by me: 02/08/17 02/08/17 18:45 18:58 Sodium 136.2 L Chloride 95 L Glucose 511 H* Direct Bilirubin 0.6 H AST 76 H ALT 102 H Urine Glucose (UA) >=500 H Urine Ketones 80 H 02/08/17 21:19 Labs- Entire Visit 02/08/17 02/08/17 02/08/17 18:45 18:58 18:58 WBC 6.3 RBC 5.41 Hgb 16.4 Hct 47.1 MCV 87 MCH 30.4 MCHC 34.9 RDW 13.8 Plt Count 200 Seg Neutrophils % 47.8 Lymphocytes % 44.6 Monocytes % 5.1 Eosinophils % 1.5 Basophils % 1.0 Absolute Neutrophils 3.0 Absolute Lymphocytes 2.8 Absolute Monocytes 0.3 Absolute Eosinophils 0.1 Absolute Basophils 0.1 VBG pH VBG pCO2 VBG HCO3 VBG Base Excess Sodium 136.2 L Potassium 3.6 Chloride 95 L Carbon Dioxide 24 Anion Gap 17 BUN 13 Creatinine 0.65 Est GFR ( Amer) > 60 Est GFR (Non-Af Amer) > 60 Glucose 511 H* Calcium 9.0 Total Bilirubin 0.8 Direct Bilirubin 0.6 H Indirect Bilirubin Not Reportable Neonat Total Bilirubin Not Reportable AST 76 H ALT 102 H Alkaline Phosphatase 121 Total Protein 6.7 Albumin 4.0 Urine Color YELLOW Urine Appearance CLEAR Urine pH 5.0 Ur Specific Allison 1.036 Urine Protein NEGATIVE Urine Glucose (UA) >=500 H Urine Ketones 80 H Urine Blood NEGATIVE Urine Nitrite NEGATIVE Urine Bilirubin NEGATIVE Urine Urobilinogen NEGATIVE Ur Leukocyte Esterase NEGATIVE Urine WBC (Auto) 0 Urine RBC (Auto) 0 Squamous Epi Cells Auto <1 Urine Mucus (Auto) RARE Urine Ascorbic Acid NEGATIVE 02/08/17 18:58 WBC RBC Hgb Hct MCV MCH MCHC RDW Plt Count Seg Neutrophils % Lymphocytes % Monocytes % Eosinophils % Basophils % Absolute Neutrophils Absolute Lymphocytes Absolute Monocytes Absolute Eosinophils Absolute Basophils VBG pH 7.35 VBG pCO2 46.8 VBG HCO3 25.4 VBG Base Excess -0.7 Sodium Potassium Chloride Carbon Dioxide Anion Gap BUN Creatinine Est GFR ( Amer) Est GFR (Non-Af Amer) Glucose Calcium Total Bilirubin Direct Bilirubin Indirect Bilirubin Neonat Total Bilirubin AST ALT Alkaline Phosphatase Total Protein Albumin Urine Color Urine Appearance Urine pH Ur Specific Allison Urine Protein Urine Glucose (UA) Urine Ketones Urine Blood Urine Nitrite Urine Bilirubin Urine Urobilinogen Ur Leukocyte Esterase Urine WBC (Auto) Urine RBC (Auto) Squamous Epi Cells Auto Urine Mucus (Auto) Urine Ascorbic Acid Discharge - Discharge Clinical Impression: Hyperglycemia, Anxiety, INCREASED STRESS Condition: Stable Disposition: HOME, SELF-CARE Instructions: Anxiety ([facility]), Hyperglycemia ([facility]) Additional Instructions: Return immediately for any new or worsening symptoms Followup with your primary care provider, call tomorrow to make a followup appointment Have your primary doctor refill your insulin tomorrow at your follow-up appointment Follow up with a mental health provider for further management of your anxiety symptoms Prescriptions: Hydroxyzine HCl [Atarax 25 mg Tablet] 2 tab PO BID #20 tablet Referrals: REECE VILLALTA MD [NO LOCAL MD] - Follow up tomorrow [facility] [Provider Group] - Follow up as needed [facility] Mobile Crisis Team [Provider Group] - Follow up as needed
[2017-02-08 19:32] LABS: ALANINE AMINOTRANSFERASE 102 U/L (21-72); ALKALINE PHOSPHATASE 121 U/L (38-126); ANION GAP 17 (5-19); ASPARTATE AMINO TRANSFERASE 76 U/L (17-59); BILIRUBIN,DIRECT 0.6 mg/dL (0.0-0.4); BILIRUBIN,TOTAL 0.8 mg/dL (0.2-1.3); BLOOD UREA NITROGEN 13 mg/dL (7-20); CARBON DIOXIDE 24 mmol/L (22-30); CHLORIDE 95 mmol/L (98-107); CREATININE RESULT 0.65 mg/dL (0.52-1.25); POTASSIUM 3.6 mmol/L (3.6-5.0); SODIUM 136.2 mmol/L (137-145); TOTAL PROTEIN 6.7 g/dL (6.3-8.2)
[2017-02-08 19:42] LABS: GLUCOSE 511 mg/dL (75-110)
[2017-02-08] MEDS ORDERED: INSULIN REG, HUMAN 100 UNIT/ML 3 ML VIAL (PYX) SUBCUT ONE (20:10)
== END 2017-02-08 21:30 | disposition home or self-care (01) ==
LOC: ER 18:18
DX: E10.65 Type 1 diabetes mellitus with hyperglycemia (principal); T38.3X6A Underdosing of insulin and oral hypoglycemic [antidiabetic] drugs, initial encounter; Z91.128 Patient's intentional underdosing of medication regimen for other reason; Z91.14 Patient's other noncompliance with medication regimen; F41.9 Anxiety disorder, unspecified; F43.9 Reaction to severe stress, unspecified; I10 Essential (primary) hypertension; F17.200 Nicotine dependence, unspecified, uncomplicated; Z88.0 Allergy status to penicillin
CPT/HCPCS: 99284; 96360; 36415; 82962; 85025; 80053; 81001; 82803; J1815; J7030

== ENCOUNTER 2017-04-25 18:43 | Emergency (ER) | payer SELFPAY ==
[2017-04-25] MEDS ORDERED: CLONIDINE HCL 0.2 MG TABLET PO ONE (20:20)
--- NOTE | 2017-04-25 20:22 | ER Document Report ---
ED Medical Screen (RME) - General Chief Complaint: Headache Stated Complaint: HEADACHE Time Seen by Provider: 04/25/17 20:19 Mode of Arrival: Ambulatory Information source: Patient TRAVEL OUTSIDE OF THE [place] IN LAST 30 DAYS: No - HPI Patient complains to provider of: DIAMOND; elevated BP Onset: Other - pt states he has h/o migraine DIAMOND but this DIAMOND is worse than normal and BP has been elevated - Related Data Allergies/Adverse Reactions: Penicillins Allergy (Unknown, Verified 04/25/17 20:19) Home Medications: Current Home Medications Insulin Glargine,Hum.rec.anlog [Lantus Solostar] 9 unit SQ ASDIR PRN 04/25/17 [ History] Insulin Glargine,Hum.rec.anlog [Toujeo Solostar] 134 unit SQ QAM 04/25/17 [ History] Past Medical History - Social History Chew tobacco use (# tins/day): No Frequency of alcohol use: None Drug Abuse: None - Past Medical History Cardiac Medical History: Reports: Hx Hypercholesterolemia - no meds, Hx Hypertension Endocrine Medical History: Reports: Hx Diabetes Mellitus Type 1, Hx Diabetes Mellitus Type 2 Renal/ Medical History: Denies: Hx Peritoneal Dialysis Psychiatric Medical History: Reports: Hx Anxiety, Hx Depression Past Surgical History: Reports: Hx Appendectomy, Hx Bowel Surgery - cancer, Hx Cholecystectomy - Immunizations Hx Diphtheria, Pertussis, Tetanus Vaccination: Yes History of Influenza Vaccine for 01/2017 - 06/2017 Season: No Physical Exam - Vital signs Vitals: Temp Pulse Resp BP Pulse Ox 98.4 F 90 18 179/111 H 90 L 04/25/17 19:33 04/25/17 19:33 04/25/17 19:33 04/25/17 19:33 04/25/17 19:33 Course - Vital Signs Vital signs: Temp Pulse Resp BP Pulse Ox 98.4 F 90 18 179/111 H 90 L 04/25/17 19:33 04/25/17 19:33 04/25/17 19:33 04/25/17 19:33 04/25/17 19:33
[2017-04-25 20:36] LABS: HEMATOCRIT 47.1 % (37.9-51.0); HEMOGLOBIN 16.6 g/dL (13.5-17.0); MEAN CORPUSCULAR HEMOGLOBIN 30.9 pg (27.0-33.4); MEAN CORPUSCULAR HGB CONC 35.3 g/dL (32.0-36.0); MEAN CORPUSCULAR VOLUME 87 fl (80-97); PLATELET COUNT 195 10^3/uL (150-450); RED BLOOD COUNT 5.39 10^6/uL (4.35-5.55); RED CELL DISTRIBUTION WIDTH 13.4 % (11.5-14.0); WHITE BLOOD COUNT 6.1 10^3/uL (4.0-10.5)
--- NOTE | 2017-04-25 20:45 | RADIOLOGY REPORT (SQ) ---
EXAM DESCRIPTION: CT HEAD WITHOUT COMPLETED DATE/TIME: 04/25/2017 8:38 pm REASON FOR STUDY: sadler COMPARISON: 01/10/2017 TECHNIQUE: Axial images acquired through the brain without intravenous contrast. Images reviewed wi th bone, brain and subdural windows. Images stored on PACS. All CT scanners at this facility use dose modulation, iterative reconstruction, and/or weight based d osing when appropriate to reduce radiation dose to as low as reasonably achievable (ALARA). [facility]: Dose Right [facility]: CareDose [facility]: Dose Right [facility]: Teradose 4D [facility]: [employer] Technologies RADIATION DOSE: mGy. LIMITATIONS: None. FINDINGS: VENTRICLES: Normal size and contour. CEREBRUM: No masses. No hemorrhage. No midline shift. No evidence for acute infarction. Normal gra y/white matter differentiation. No areas of low density in the white matter. CEREBELLUM: No masses. No hemorrhage. No alteration of density. No evidence for acute infarction. EXTRAAXIAL SPACES: No fluid collections. No masses. ORBITS AND GLOBE: No intra- or extraconal masses. Normal contour of globe without masses. CALVARIUM: No fracture. PARANASAL SINUSES: No fluid or mucosal thickening. SOFT TISSUES: No mass or hematoma. OTHER: No other significant finding. IMPRESSION: NORMAL BRAIN CT WITHOUT CONTRAST. EVIDENCE OF ACUTE STROKE: NO. COMMENT: Quality ID # [id number]: Final reports with documentation of one or more dose reduction techniques (e.g., Automated exposure control, adjustment of the mA and/or kV according to patient size, use of iterative reconstruction technique) TECHNICAL DOCUMENTATION: JOB ID: [id number] [employer]- All Rights Reserved
[2017-04-25 21:02] LABS: ALANINE AMINOTRANSFERASE 79 U/L (21-72); ALBUMIN 4.2 g/dL (3.5-5.0); ALKALINE PHOSPHATASE 94 U/L (38-126); ANION GAP 11 (5-19); ASPARTATE AMINO TRANSFERASE 63 U/L (17-59); BILIRUBIN,DIRECT 0.4 mg/dL (0.0-0.4); BILIRUBIN,TOTAL 1.1 mg/dL (0.2-1.3); BLOOD UREA NITROGEN 7 mg/dL (7-20); CALCIUM 9.6 mg/dL (8.4-10.2); CARBON DIOXIDE 30 mmol/L (22-30); CHLORIDE 104 mmol/L (98-107); GLUCOSE 88 mg/dL (75-110); POTASSIUM 3.6 mmol/L (3.6-5.0); SODIUM 144.9 mmol/L (137-145); TOTAL PROTEIN 7.2 g/dL (6.3-8.2)
[2017-04-25] MEDS ORDERED: DIPHENHYDRAMINE HCL 50 MG/ML VIAL IV ONE (22:07)
[2017-04-25] MEDS ORDERED: METOCLOPRAMIDE HCL INJ/PF 10 MG/2 ML SDV IV ONE (22:07)
--- NOTE | 2017-04-25 22:29 | ER Document Report ---
ED General - General Chief Complaint: Headache Stated Complaint: HEADACHE Time Seen by Provider: 04/25/17 20:19 Mode of Arrival: Ambulatory Notes: Patient is 57-year-old male presents with complaint of a headache. Patient gets headaches not infrequently. He says it usually come when he is stressed. Patient says he is having a lot of anxiety tonight. He says he does have history of PTSD due to something that happened [place] when he was in . He has a girlfriend that recently got out of [place]. He says tonight again and arguments. Since then he has been very anxious and upset. He does not take any medications for anxiety. He also has blood pressure was high and he has headache. Headache was gradual in onset and worsened throughout the day as his anxiety got worse. No fevers. No infections. No focal weakness or numbness. No associated vomiting. He is to be on high blood pressure medications but had colon cancer 6 years ago and lost weight. After losing weight his blood pressure normalized and no longer is on medications for high blood pressure. He does not follow with the doctor as he just started a new job and is waiting to get insurance. TRAVEL OUTSIDE OF THE [place] IN LAST 30 DAYS: No - Related Data Allergies/Adverse Reactions: Penicillins Allergy (Unknown, Verified 04/25/17 20:19) Home Medications: Current Home Medications Insulin Glargine,Hum.rec.anlog [Lantus Solostar] 9 unit SQ ASDIR PRN 04/25/17 [ History] Insulin Glargine,Hum.rec.anlog [Toujeo Solostar] 134 unit SQ QAM 04/25/17 [ History] Past Medical History - General Information source: Patient - Social History Smoking Status: Current Every Day Smoker Chew tobacco use (# tins/day): No Frequency of alcohol use: None Drug Abuse: None Family History: Reviewed & Not Pertinent Patient has suicidal ideation: No Patient has homicidal ideation: No - Past Medical History Cardiac Medical History: Reports: Hx Hypercholesterolemia - no meds, Hx Hypertension Endocrine Medical History: Reports: Hx Diabetes Mellitus Type 1, Hx Diabetes Mellitus Type 2 Renal/ Medical History: Denies: Hx Peritoneal Dialysis Psychiatric Medical History: Reports: Hx Anxiety, Hx Depression Past Surgical History: Reports: Hx Appendectomy, Hx Bowel Surgery - cancer, Hx Cholecystectomy - Immunizations Hx Diphtheria, Pertussis, Tetanus Vaccination: Yes Review of Systems - Review of Systems Notes: My Normal Review Basic REVIEW OF SYSTEMS: CONSTITUTIONAL : Denies fever, chills, or sweats. Denies recent illness. EENT: Denies eye, ear, throat, or mouth pain or symptoms. Denies nasal or sinus congestion. CARDIOVASCULAR: Denies chest pain. RESPIRATORY: Denies cough, cold, or chest congestion. Denies shortness of breath, difficulty breathing, or wheezing. GASTROINTESTINAL: Denies abdominal pain. Denies nausea, vomiting, or diarrhea. Denies constipation. Last BM: MUSCULOSKELETAL: Denies neck or back pain or joint pain or swelling. SKIN: Denies rash or skin lesions. NEUROLOGICAL: Denies altered mental status or loss of consciousness. Has a headache. Denies weakness or paralysis or loss of use of either side. Denies problems with gait or speech. Denies sensory or motor loss. PSYCHIATRIC: Anxiety ALL OTHER SYSTEMS REVIEWED AND NEGATIVE. Physical Exam - Vital signs Vitals: Temp Pulse Resp BP Pulse Ox 98.4 F 90 18 179/111 H 90 L 04/25/17 19:33 04/25/17 19:33 04/25/17 19:33 04/25/17 19:33 04/25/17 19:33 - Notes Notes: General Appearance: Well nourished, alert, cooperative, no acute distress, no obvious discomfort. Well-appearing. Vitals: reviewed, See vital signs table. Head: no swelling or tenderness to the head Eyes: PERRL, EOMI, Conjuctiva clear Mouth: No decreasd moisture Neck: Supple, no neck tenderness, No thyromegaly Lungs: No wheezing, No rales, No rhonci, No accessory muscle use, good air exchange bilaterally. Heart: Normal rate, Regular rythm, No murmur, no rub Abdomen: Normal BS, soft, No rigidity, No abdominal tenderness, No guarding, no rebound, no abdominal masses, no organomegaly Extremities: strength 5/5 in all extremities, good pulses in all extremities, no swelling or tenderness in the extremities, no edema. Skin: warm, dry, appropriate color, no rash Neuro: speech clear, oriented x 3, normal affect, responds appropriately to questions. Cranial nerves II through XII are intact. Distal sensation intact. Patient moves all extremities without difficulty. normal gait. Course - Re-evaluation Re-evalutation: 04/26/17 00:20 Patient is feeling much improved. He looks well. His headache is gone. We will have him keep a log of his blood pressures over the next week. If his blood pressure continues to be recurrently elevated then he may need to be placed on an antihypertensive medication accuse him in the past. I suspect that most of her blood pressure and headache are related to his anxiety and stressful situation regards to his girlfriend. Patient denies any suicidal ideations or depression. I encourage him return to ER anytime if he is feeling is having depression or suicidal thoughts. Patient agrees with plan will be discharged home. Dictation of this chart was performed using voice recognition software; therefore, there may be some unintended grammatical errors. - Vital Signs Vital signs: Temp Pulse Resp BP Pulse Ox 98.4 F 81 16 151/101 H 96 04/25/17 19:33 04/25/17 22:11 04/25/17 22:09 04/25/17 22:09 04/25/17 22:09 - Laboratory Result Diagrams: 04/25/17 20:25 04/25/17 20:25 Laboratory results interpreted by me: 04/25/17 20:25 AST 63 H ALT 79 H Discharge - Discharge Clinical Impression: Anxiety Headache Qualifiers: Headache type: unspecified Headache chronicity pattern: acute headache Intractability: not intractable Qualified Code(s): R51 - Headache Hypertension Qualifiers: Hypertension type: unspecified Qualified Code(s): I10 - Essential (primary) hypertension Condition: Good Disposition: HOME, SELF-CARE Additional Instructions: Please return to the ER immediately if you develop worsening headaches, chest pain, severe depression, thoughts of suicide, or feel unwell. Keep a log of your blood pressures over the next week. If your blood pressures are consistently high you may eventually be placed back on the high blood pressure medication. Please follow-up with a primary care doctor in 1 week and bring your log logs of your blood pressures with you. You can return to the ER if you are unable to follow-up with a primary care doctor and your blood pressure continues to run high.Please take the Vistaril as 1 tablet every 12 hours as needed for anxiety. This medication may make you sleepy so do not drive after taking this medication. Prescriptions: Hydroxyzine Pamoate [Vistaril 25 mg Capsule] 25 mg PO BID PRN #30 capsule PRN Reason: Anxiety
[2017-04-26] MEDS ORDERED: HYDROXYZINE PAMOATE 25 MG CAPSULE (4 CAP/ER DISP) PO PRN (00:18)
[2017-04-26 00:34] VITALS: BP 123/76
== END 2017-04-26 00:34 | disposition home or self-care (01) ==
LOC: ER 18:43
DX: F41.9 Anxiety disorder, unspecified (principal); R51 Headache; I10 Essential (primary) hypertension; E11.9 Type 2 diabetes mellitus without complications; F17.200 Nicotine dependence, unspecified, uncomplicated; Z85.038 Personal history of other malignant neoplasm of large intestine; Z88.0 Allergy status to penicillin
CPT/HCPCS: 99284; 96374; 96375; 36415; 85027; 80053; 70450; J1200; J3490; J2765

== ENCOUNTER 2017-05-10 20:13 | Emergency (ER) | payer SELFPAY ==
[2017-05-10] MEDS ORDERED: ACETAMINOPHEN 325 MG TABLET PO ONE (20:25)
--- NOTE | 2017-05-10 20:43 | ER Document Report ---
HPI - HPI Patient complains to provider of: fever, cold, boday aches, DIAMOND, nasal congestion , cough Onset: Other - 2-3 days Onset/Duration: Persistent Quality of pain: Achy Pain Level: 3 Context: Presents emergency department with complaints of cold body aches headache and trouble breathing. When asked to clarify he reports nasal congestion is making it hard for him to breathe. Patient has not taken anything for the headache. Patient reports onset of symptoms 2-3 days ago. He did not get his flu vaccine. Patient does work at [employer]. He is a diabetic. Patient denies vomiting diarrhea. Reports he is able to eat/drink without problems. Associated Symptoms: Body/muscle aches, Nonproductive cough, Fever, Headache, Other - nasal congestion Exacerbated by: Denies Relieved by: Denies Similar symptoms previously: No Recently seen / treated by doctor: No - CONSTITUTIONAL Constitutional: REPORTS: Fever, Chills - EENT EENT: DENIES: Sore Throat, Ear Pain, Eye problems - NEURO Neurology: REPORTS: Headache. DENIES: Weakness, Vision blurred, Dizzinesss / Vertigo - CARDIOVASCULAR Cardiovascular: DENIES: Chest pain - RESPIRATORY Respiratory: REPORTS: Trouble Breathing, Coughing - GASTROINTESTINAL Gastrointestinal: DENIES: Abdominal Pain, Black / Bloody Stools - URINARY Urinary: DENIES: Dysuria, Urgency, Frequency - MUSCULOSKELETAL Musculoskeletal: DENIES: Extremity pain Past Medical History - General Information source: Patient - Social History Smoking Status: Current Every Day Smoker Cigarette use (# per day): Yes Frequency of alcohol use: None Drug Abuse: None Occupation: [employer] Lives with: Family Family History: Reviewed & Not Pertinent Patient has suicidal ideation: No Patient has homicidal ideation: No - Past Medical History Cardiac Medical History: Reports: Hx Hypercholesterolemia - no meds, Hx Hypertension Endocrine Medical History: Reports: Hx Diabetes Mellitus Type 1, Hx Diabetes Mellitus Type 2 Renal/ Medical History: Denies: Hx Peritoneal Dialysis Malignancy Medical History: Reports Hx Colorectal Cancer Psychiatric Medical History: Reports: Hx Anxiety, Hx Depression Past Surgical History: Reports: Hx Appendectomy, Hx Bowel Surgery - cancer, Hx Cholecystectomy - Immunizations Hx Diphtheria, Pertussis, Tetanus Vaccination: Yes History of Influenza Vaccine for 01/2017 - 06/2017 Season: No Vertical Provider Document - CONSTITUTIONAL Agree With Documented VS: Yes Exam Limitations: No Limitations General Appearance: WD/WN, No Apparent Distress - nontoxic looking - INFECTION CONTROL TRAVEL OUTSIDE OF THE [place] IN LAST 30 DAYS: No - HEENT HEENT: Atraumatic, Normocephalic. negative: Conjuctival Injection, Pharyngeal Exudate, Pharyngeal Erythema, Tympanic Membrane Red, Tympanic Membrane Bulging - NECK Neck: Normal Inspection, Supple. negative: Lymphadenopathy-Left, Lymphadenopathy-Right - RESPIRATORY Respiratory: Breath Sounds Normal, No Respiratory Distress. negative: Rhonchi, Wheezing O2 Sat by Pulse Oximetry: 96 - CARDIOVASCULAR Cardiovascular: Tachycardia - GI/ABDOMEN Gastrointestinal: Abdomen Soft, Abdomen Non-Tender - MUSCULOSKELETAL/EXTREMETIES Musculoskeletal/Extremeties: MACHIKIS, FROM - NEURO Level of Consciousness: Awake, Alert, Appropriate Motor/Sensory: No Motor Deficit - DERM Integumentary: Warm, Dry, No Rash Course - Re-evaluation Re-evalutation: 05/10/17 21:43 Patient does not have insurance. We discussed Tamiflu side effects of Tamiflu. We also discussed Levaquin. Will treat patient with doxycycline at this time due to no insurance. Patient was instructed to return to the emergency department for increasing symptoms difficulty breathing concerns. He verbalized understanding. - Vital Signs Vital signs: Temp Pulse Resp BP Pulse Ox 101.4 F H 113 H 20 164/100 H 96 05/10/17 20:20 05/10/17 20:20 05/10/17 20:20 05/10/17 20:20 05/10/17 20:20 - Diagnostic Test Radiology reviewed: Image reviewed, Reports reviewed - Diagnostic report text EXAM DESCRIPTION: CHEST PA/LAT COMPLETED DATE/TIME: 05/10/2017 8: 53 pm REASON FOR STUDY: cough fever COMPARISON: 2009. TECHNIQUE: Frontal and lateral radiographic views of the chest acquired. NUMBER OF VIEWS: Two view. LIMITATIONS: None. FINDINGS: LUNGS AND PLEURA: Suspect minimal subsegmental atelectasis or infiltrate in the lingula. MEDIASTINUM AND HILAR STRUCTURES: No masses or contour abnormalities. HEART AND VASCULAR STRUCTURES: Heart normal size. No evidence for failure. BONES: No acute findings. HARDWARE : None in the chest. OTHER: No other significant finding. IMPRESSION: Left upper lobe infiltrate Discharge - Discharge Clinical Impression: Influenza A, Elevated blood pressure reading Pneumonia Qualifiers: Pneumonia type: due to unspecified organism Laterality: left Lung location: upper lobe of lung Qualified Code(s): J18.1 - Lobar pneumonia, unspecified organism Condition: Stable Disposition: HOME, SELF-CARE Instructions: Acetaminophen, Doxycycline ([facility]), Influenza ([facility]), Pneumonia ([facility] ) Additional Instructions: *You have been evaluated for a influenza A, pneumonia , ELEVATED blood pressure reading *Take medication as prescribed *Increase fluids *Monitor your temperature, take Tylenol as indicated *Follow up with a primary care provider within 5 days *Return to ED for increasing fever, cough, worsening condition, changes, needs, concerns, trouble breathing concerns Monitor your blood pressure. Your blood pressure was elevated today. This may be because you were anxious, in pain or because you need medication. It is important to follow up with your primary care provider for full evaluation. Prescriptions: Doxycycline Hyclate 100 mg PO BID #20 capsule Oseltamivir Phosphate [Tamiflu 75 mg Capsule] 75 mg PO BID #10 capsule Forms: Elevated Blood Pressure, Return to Work
--- NOTE | 2017-05-10 21:05 | RADIOLOGY REPORT (SQ) ---
EXAM DESCRIPTION: CHEST PA/LAT COMPLETED DATE/TIME: 05/10/2017 8:53 pm REASON FOR STUDY: cough fever COMPARISON: 2009. TECHNIQUE: Frontal and lateral radiographic views of the chest acquired. NUMBER OF VIEWS: Two view. LIMITATIONS: None. FINDINGS: LUNGS AND PLEURA: Suspect minimal subsegmental atelectasis or infiltrate in the lingula. MEDIASTINUM AND HILAR STRUCTURES: No masses or contour abnormalities. HEART AND VASCULAR STRUCTURES: Heart normal size. No evidence for failure. BONES: No acute findings. HARDWARE: None in the chest. OTHER: No other significant finding. IMPRESSION: Left upper lobe infiltrate. TECHNICAL DOCUMENTATION: JOB ID: [id number] [employer]- All Rights Reserved
[2017-05-10 21:09] LABS: A TYPE INFLUENZA AG POSITIVE (NEGATIVE); B INFLUENZA AG NEGATIVE (NEGATIVE)
[2017-05-10] MEDS ORDERED: DOXYCYCLINE HYCLATE 100 MG TABLET PO ONE (21:25)
[2017-05-10 21:43] VITALS: BP 160/91
== END 2017-05-10 21:43 | disposition home or self-care (01) ==
LOC: ER 20:13
DX: J10.1 Influenza due to other identified influenza virus with other respiratory manifestations (principal); J18.1 Lobar pneumonia, unspecified organism; I10 Essential (primary) hypertension; R50.9 Fever, unspecified; M79.1 Myalgia; R51 Headache; R09.81 Nasal congestion; F17.210 Nicotine dependence, cigarettes, uncomplicated; E78.00 Pure hypercholesterolemia, unspecified; E11.9 Type 2 diabetes mellitus without complications; Z85.038 Personal history of other malignant neoplasm of large intestine; Z90.49 Acquired absence of other specified parts of digestive tract
CPT/HCPCS: 71046; 87804; 99284

== ENCOUNTER 2017-08-27 03:30 | Emergency (ER) | payer SELFPAY ==
[2017-08-27 03:43] VITALS: BP 163/83
[2017-08-27] MEDS ORDERED: DIPHENHYDRAMINE HCL 50 MG CAPSULE PO ONE (04:10)
[2017-08-27] MEDS ORDERED: PROCHLORPERAZINE EDISYLATE INJ 10 MG/2 ML VIAL IM ONE (04:10)
[2017-08-27] MEDS ORDERED: KETOROLAC TROMETHAMINE INJ/PF 30 MG/1 ML SDV IM ONE (04:10)
--- NOTE | 2017-08-27 04:18 | ER Document Report ---
ED General - General Chief Complaint: Headache Stated Complaint: HEADACHE,POSSIBLE BLOODSUGAR ISSUES Time Seen by Provider: 08/27/17 04:01 TRAVEL OUTSIDE OF THE [place] IN LAST 30 DAYS: No - HPI Notes: Patient is a 57-year-old male with a history of migraines, diabetes, and hypertension who presents to the ED complaining of a headache 2-3 hours. Patient states that he got off work midnight, but began having a migraine thereafter. Patient states that the pain is the same as previous headaches in the past. Patient states that he has had a CT scan of the past for this headache as well. Patient states that he has had worse headaches from this evening. Patient states that the pain starts in the back of his head posteriorly travels superiorly and anteriorly. He does not have any associated light sensitivity or noise sensitivity. He is still eating and drinking without difficulty. He is urinating normally and having normal bowel movements. He has no other concern of pain or illness. Denies any fever, head injury, neck pain, changes in vision/speech/mentation/hearing, URI, sore throat , chest pain, palpitations, syncope, cough, shortness of breath, wheeze, dyspnea , abdominal pain, nausea/vomiting/diarrhea, urinary retention, dysuria, hematuria, loss of control of bowel or bladder, numbness/tingling, saddle anesthesia, muscle paralysis/weakness, or rash. - Related Data Allergies/Adverse Reactions: Penicillins Allergy (Unknown, Verified 05/10/17 20:13) Past Medical History - Social History Smoking Status: Unknown if Ever Smoked Frequency of alcohol use: None Drug Abuse: None Family History: Reviewed & Not Pertinent Patient has suicidal ideation: No Patient has homicidal ideation: No - Past Medical History Cardiac Medical History: Reports: Hx Hypercholesterolemia - no meds, Hx Hypertension Endocrine Medical History: Reports: Hx Diabetes Mellitus Type 1, Hx Diabetes Mellitus Type 2 Renal/ Medical History: Denies: Hx Peritoneal Dialysis Malignancy Medical History: Reports Hx Colorectal Cancer Psychiatric Medical History: Reports: Hx Anxiety, Hx Depression Past Surgical History: Reports: Hx Appendectomy, Hx Bowel Surgery - cancer, Hx Cholecystectomy - Immunizations Hx Diphtheria, Pertussis, Tetanus Vaccination: Yes Review of Systems - Review of Systems -: Yes All other systems reviewed and negative Physical Exam - Vital signs Vitals: Pulse Resp BP Pulse Ox 65 18 163/83 H 99 08/27/17 03:33 08/27/17 03:33 08/27/17 03:33 08/27/17 03:33 - Notes Notes: PHYSICAL EXAMINATION: GENERAL: Well-appearing, well-nourished and in no acute distress. A&Ox4. Answers questions appropriately. HEAD: Atraumatic, normocephalic. + mild tenderness at the occipital nerve bundles b/l, correlates with origin site of his DIAMOND's. EYES: Pupils equal round and reactive to light, extraocular movements intact, sclera anicteric, conjunctiva are normal. No nystagmus. ENT: Nares patent and without discharge. oropharynx clear without exudates. No tonsilar hypertrophy or erythema. Moist mucous membranes. NECK: Normal range of motion, supple without lymphadenopathy. No rigidity. No midline tenderness. Spurling negative. LUNGS: Breath sounds clear to auscultation bilaterally and equal. No wheezes rales or rhonchi. HEART: Regular rate and rhythm without murmurs, rubs, gallops. ABDOMEN: Soft, nontender, nondistended abdomen. No guarding, no rebound. No masses appreciated. Normal bowel sounds present. No CVA tenderness bilaterally. Musculoskeletal: Ext b/l: FROM to passive/active. Strength 5+/5. No deficits noted. No bony tenderness of extremities. Back: FROM to passive/active. Strength 5+/5. No vertebral point tenderness, stepoffs, or deformities. Extremities: No cyanosis, clubbing, or edema b/l. Peripheral pulses 2+. Capillary refill less than 2 seconds. NEUROLOGICAL: NIH 0. GCS 15. Cranial nerves grossly intact. Normal speech, normal gait. Normal sensory, motor exams. Reflexes 2+ b/l. ARTEM's negative. Pronator drift negative. Heel/dexter, finger/nose wnl. PSYCH: Normal mood, normal affect. SKIN: Warm, Dry, normal turgor, no rashes or lesions noted. Course - Re-evaluation Re-evalutation: 08/27/17 04:15 Patient is an afebrile, well-hydrated, 57-year-old male who presents to the ED with a headache, suspect 1 of his migraines. His DIAMOND's appear to be stemming from occipital neuritis which I suspect could be secondary to muscle tension. Vitals are acceptable. PE is otherwise unremarkable for any focal neurological deficits. Patient has a history of migraines with imaging a few months ago was unremarkable. He has no neurological findings. NIH 0, GCS 15, cranial nerves grossly intact. No labs or imaging warranted at this time based on H&P. Patient is tolerating p.o. without any difficulties. Low suspicion for any acute glaucoma, temporal arteritis, meningitis, intracranial hemorrhage, ischemic stroke, or fracture at this time. Patient is aware that his condition can change from initial presentation and that he needs to monitor symptoms closely for any acute changes. Toradol, Benadryl, and Compazine given today. If/once his headache begins to improve we will discharge home so that he may go sleep. Patient is agreeable to this plan. Advised thereafter recheck with PCM in 3-5 days. Consider consult with a neurologist. Return to the ED with any worsening/concerning symptoms otherwise as reviewed discharge. Patient is in agreement. Discharge as noted above will be pending treatment results. 08/27/17 04:42 Pt already having significant improvement in his DIAMOND. He is feeling well and is ready to go home. Pt states that he is not feeling drowsy at all and only lives a few minutes away. Pt states that he has a ride home. - Vital Signs Vital signs: Temp Pulse Resp BP Pulse Ox 65 18 163/83 H 99 08/27/17 03:33 08/27/17 03:33 08/27/17 03:33 08/27/17 03:33 Discharge - Discharge Clinical Impression: Headache Qualifiers: Headache type: unspecified Headache chronicity pattern: acute headache Intractability: not intractable Qualified Code(s): R51 - Headache Condition: Stable Disposition: HOME, SELF-CARE Instructions: Headache ([facility]) Additional Instructions: Rest, Ice Tylenol/ibuprofen as needed Light stretches daily Strength exercises as able Moist heat and massage may help F/u with your PCP in 3-5 days for a recheck Consider consult(s) with Neurology for ongoing/worsening symptoms Return to the ED with any worsening symptoms and/or development of fever, headache, changes in behavior/mentation/vision/speech, chest pain, palpitations , syncope, shortness of breath, trouble breathing, abdominal pain, n/v/d, blood in stool/urine, loss of control of bowel/bladder, urinary retention, muscle weakness/paralysis, saddle anesthesia, numbness/tingling, or other worsening symptoms that are concerning to you. Forms: Elevated Blood Pressure Referrals: MOISÉS CORTES MD [EMERITUS] - Follow up as needed
== END 2017-08-27 04:46 | disposition home or self-care (01) ==
LOC: ER 03:30
DX: R51 Headache (principal); I10 Essential (primary) hypertension; E11.9 Type 2 diabetes mellitus without complications; Z86.69 Personal history of other diseases of the nervous system and sense organs; Z85.048 Personal history of other malignant neoplasm of rectum, rectosigmoid junction, and anus; Z88.0 Allergy status to penicillin
CPT/HCPCS: 99284; 96372; 82962; J1885; J0780

== ENCOUNTER 2017-09-10 03:56 | Emergency (ER) | payer SELFPAY ==
[2017-09-10] MEDS ORDERED: ACETAMINOPHEN 325 MG TABLET PO ONE (04:34)
[2017-09-10] MEDS ORDERED: BUTALB/ACETAMINOPHEN/CAFFEINE 1 TAB EACH PO ONE (04:45)
[2017-09-10] MEDS ORDERED: AZITHROMYCIN 250 MG TABLET PO ONE (04:45)
--- NOTE | 2017-09-10 04:53 | ER Document Report ---
HPI - HPI Pain Level: 3 Context: Patient is a 57-year-old male presents emergency department with a chief complaint of sinus pressure, headache, left ear pain and fever. Patient states that the symptoms all started within the past 24 hours. Patient states his been taking Motrin for his headache. Otherwise denies any pain drainage, redness, tenderness over sinuses. Patient admits to history of anxiety, diabetes and hypertension Past Medical History - Social History Smoking Status: Unknown if Ever Smoked Family History: Reviewed & Not Pertinent - Past Medical History Cardiac Medical History: Reports: Hx Hypercholesterolemia - no meds, Hx Hypertension Endocrine Medical History: Reports: Hx Diabetes Mellitus Type 1, Hx Diabetes Mellitus Type 2 Renal/ Medical History: Denies: Hx Peritoneal Dialysis Malignancy Medical History: Reports Hx Colorectal Cancer Psychiatric Medical History: Reports: Hx Anxiety, Hx Depression Past Surgical History: Reports: Hx Appendectomy, Hx Bowel Surgery - cancer, Hx Cholecystectomy - Immunizations Hx Diphtheria, Pertussis, Tetanus Vaccination: Yes Vertical Provider Document - CONSTITUTIONAL Agree With Documented VS: Yes Notes: PHYSICAL EXAM GENERAL: Alert, interacts well. HEENT: NCAT, pale conjunctiva, extraocular movements intact, pupils PERRL. external ear normal, no evidence of external auditory canal tenderness, blood/ drainage, cerumen impaction, left TM intact with evidence of effusion, bulging, injection, MMM, Uvula midline. Airway patent. No evidence of tonsillar sinuses nontender without any evidence of overlying erythema enlargement, peritonsillar abscess, retropharyngeal abscess. LUNGS: Clear to auscultation bilaterally, no wheezes, rales, or rhonchi. No respiratory distress. HEART: Regular rate and rhythm. No murmurs, gallops, or rubs. EXTREMITIES: Moves all 4 extremities spontaneously. No edema, radial and dorsalis pedis pulses 2/4 bilaterally. No cyanosis. NEUROLOGICAL: Alert and oriented x4. Normal speech. PSYCH: Normal affect, normal mood. SKIN: Warm, dry, normal turgor. No rashes or lesions noted. - INFECTION CONTROL TRAVEL OUTSIDE OF THE [place] IN LAST 30 DAYS: No Course - Re-evaluation Re-evalutation: 09/10/17 05:44 Patient is a 57 year old male who presents with upper respiratory infection symptoms with associated left otitis media. Givenphysical exam findings and presence of fever will treat with p.o. antibiotics. Otherwise discussed over- the-counter medications we will discharge him home with headache medications to help with his discomfort. Patient agrees with plan. Discussed strict return precautions otherwise follow-up with primary care - Vital Signs Vital signs: Temp Pulse Resp BP Pulse Ox 101.5 F H 96 20 185/101 H 97 09/10/17 04:02 09/10/17 04:02 09/10/17 04:02 09/10/17 04:02 09/10/17 04:02 Discharge - Discharge Clinical Impression: Headache, Otitis media Condition: Good Disposition: HOME, SELF-CARE Instructions: Otitis Media ([facility]) Additional Instructions: You can take [id number] Coricidin for decongestion as well as Claritin or Zyrtec to help with your sinus congestion. Please take Tylenol or Motrin as needed for your pain. Prescriptions: Azithromycin [Zithromax 250 mg Tablet] 250 mg PO ASDIR PRN #6 tablet PRN Reason: Butalb/Acetaminophen/Caffeine [Fioricet (50-325-40 mg) Tablet] 1 - 2 tab PO Q4H #20 tab Forms: Elevated Blood Pressure, Return to Work Referrals: BOBBY BARKLEY MD [ACTIVE STAFF] - Follow up as needed
[2017-09-10 05:55] VITALS: BP 165/95
== END 2017-09-10 05:52 | disposition home or self-care (01) ==
LOC: ER 03:56
DX: H66.92 Otitis media, unspecified, left ear (principal); R51 Headache; H92.02 Otalgia, left ear; R50.9 Fever, unspecified; I10 Essential (primary) hypertension; E11.9 Type 2 diabetes mellitus without complications; Z85.048 Personal history of other malignant neoplasm of rectum, rectosigmoid junction, and anus
CPT/HCPCS: 99283; J3490

== ENCOUNTER 2017-09-27 04:46 | Emergency (ER) | payer SELFPAY ==
[2017-09-27 05:10] VITALS: BP 187/110
== END 2017-09-27 07:14 | disposition left against medical advice (07) ==
LOC: ER 04:46
DX: Z53.21 Procedure and treatment not carried out due to patient leaving prior to being seen by health care provider (principal)

== ENCOUNTER 2018-02-21 04:19 | Emergency (ER) | payer SELFPAY ==
[2018-02-21] MEDS ORDERED: METOCLOPRAMIDE HCL INJ/PF 10 MG/2 ML SDV IV ONE (04:45)
[2018-02-21] MEDS ORDERED: KETOROLAC TROMETHAMINE INJ/PF 30 MG/1 ML SDV IV ONE (04:45)
--- NOTE | 2018-02-21 04:54 | ER Document Report ---
ED General - General Chief Complaint: Headache <24 hrs old Stated Complaint: POSSIBLE ANXIETY ATTACK Time Seen by Provider: 02/21/18 04:31 Notes: Patient is a 57-year-old male who presents to the emergency department with a headache. He states his headache is similar to his normal headaches. He usually takes tylenol or aspirin for his headaches, but does not have any at home. The headache starts at the occipital region and radiates anteriorly to his forehead. He has a medical history of CHF and diabetes. He has been taking his insulin and Lasix as prescribed. He denies fevers, blurred vision, seeing spots, or having the worst headache of his life. TRAVEL OUTSIDE OF THE [place] IN LAST 30 DAYS: No - Related Data Allergies/Adverse Reactions: Penicillins Allergy (Unknown, Verified 02/21/18 04:25) Past Medical History - General Information source: Patient - Social History Smoking Status: Current Every Day Smoker Frequency of alcohol use: None Drug Abuse: None Family History: Reviewed & Not Pertinent - Past Medical History Cardiac Medical History: Reports: Hx Hypercholesterolemia - no meds, Hx Hypertension Endocrine Medical History: Reports: Hx Diabetes Mellitus Type 1, Hx Diabetes Mellitus Type 2 Renal/ Medical History: Denies: Hx Peritoneal Dialysis Malignancy Medical History: Reports Hx Colorectal Cancer Psychiatric Medical History: Reports: Hx Anxiety, Hx Depression Past Surgical History: Reports: Hx Appendectomy, Hx Bowel Surgery - cancer, Hx Cholecystectomy - Immunizations Hx Diphtheria, Pertussis, Tetanus Vaccination: Yes Review of Systems - Review of Systems Notes: REVIEW OF SYSTEMS: CONSTITUTIONAL : Denies recent illness. Denies recent unintentional weight loss. Denies fever, chills, or sweats. EENT: Denies eye, ear, throat, or mouth pain, discharge, or symptoms. Denies nasal or sinus congestion. CARDIOVASCULAR: Denies chest pain. RESPIRATORY: Denies shortness of breath, cough, congestion, difficulty breathing , or wheezing. GASTROINTESTINAL: Denies nausea, vomiting, and diarrhea. Denies abdominal pain. Denies constipation. Last BM: GENITOURINARY: Denies difficulty urinating, burning, blood in urine, urgency or frequency. MUSCULOSKELETAL: Denies neck and back pain. Denies joint pain or swelling. SKIN: Denies rash, itchiness, or lesions HEMATOLOGIC : Denies easy bruising or bleeding. LYMPHATIC: Denies swollen, painful, enlarged glands. NEUROLOGICAL: See HPI. denies no numbness or tingling denies weakness. Denies altered mental status. Denies alteration in speech. PSYCHIATRIC: See HPI. Denies stress, alteration in sleep patterns, or depression. All other systems reviewed and negative. Physical Exam - Vital signs Vitals: Temp Pulse Resp BP Pulse Ox 97.6 F 92 14 165/104 H 95 02/21/18 04:26 02/21/18 04:26 02/21/18 04:26 02/21/18 04:26 02/21/18 04:26 - Notes Notes: PHYSICAL EXAMINATION: GENERAL: Appears well, healthy, well-nourished, no acute distress. HEAD: Normocephalic, atraumatic. EYES: PERRL, conjunctiva normal, all extraocular movements intact, sclera nonicteric ENT: Moist mucous membranes. NECK: Supple, no noticeable swelling, redness, rash. Normal range of motion. LUNGS: Equal breath sounds bilaterally and clear to auscultation. No wheezes rales or rhonchi. CARDIOVASCULAR: S1-S2, regular rate, regular rhythm. Radial pulses 2+, normal. ABDOMEN: Normoactive bowel sounds. Soft, nontender, no guarding, no rebound tenderness, and no masses palpated. EXTREMITIES: Normal strength and range of motion, no pitting or edema. No cyanosis. NEUROLOGICAL: Moves all extremities upon command. Strength 5/5 in all extremities. PSYCH: Normal mood, normal affect. SKIN: Warm, dry. No rash, lesions, ulcerations noted. Normal skin turgor. Course - Re-evaluation Re-evalutation: 02/21/18 04:58 Due to the patient's presentation and complaints having a headache that is related to headaches he has had in the past, I do not suspect he has a subdural hematoma, subarachnoid hemorrhage, intracranial tumor, or any other life- threatening issues at this time. He will be given Reglan and Toradol for headache pain control. 02/21/18 05:53 Patient is pacing the halls and has not had relief from his Vistaril, Ativan will be ordered to help him with his anxiety. 02/21/18 06:20 Patient states that his anxiety has greatly improved. He is stable for discharge, with complete resolution of his headache. Verbal discharge instructions were given to the patient at bedside. Patient verbalized understanding. His friend will be taking him home. - Vital Signs Vital signs: Temp Pulse Resp BP Pulse Ox 97.6 F 92 14 165/104 H 95 02/21/18 04:26 02/21/18 04:26 02/21/18 04:26 02/21/18 04:26 02/21/18 04:26 Discharge - Discharge Clinical Impression: Headache, Anxiety Condition: Stable Disposition: HOME, SELF-CARE Additional Instructions: You have been seen in the emergency department for a headache and anxiety. Please establish a primary care doctor so you can get started back on your Vistaril. If you have a fever greater than 100.4 F, develop the worst headache of your life, or have any concerns that are worrisome to you, please return to the emergency department.
[2018-02-21] MEDS ORDERED: HYDROXYZINE PAMOATE 25 MG CAPSULE PO ONE (05:12)
[2018-02-21] MEDS ORDERED: LORAZEPAM INJ 2 MG/1 ML VIAL IV ONE (05:53)
[2018-02-21 06:48] VITALS: BP 170/110
== END 2018-02-21 06:47 | disposition home or self-care (01) ==
LOC: ER 04:19
DX: R51 Headache (principal); F41.9 Anxiety disorder, unspecified; I11.0 Hypertensive heart disease with heart failure; I50.9 Heart failure, unspecified; F17.200 Nicotine dependence, unspecified, uncomplicated; E11.9 Type 2 diabetes mellitus without complications; Z79.4 Long term (current) use of insulin; Z79.899 Other long term (current) drug therapy; Z88.0 Allergy status to penicillin; Z85.048 Personal history of other malignant neoplasm of rectum, rectosigmoid junction, and anus
CPT/HCPCS: 99283; 96374; 96375; J1885; J2765; J2060

== ENCOUNTER 2018-02-26 02:12 | Emergency (ER) | payer SELFPAY ==
--- NOTE | 2018-02-26 02:46 | ER Document Report ---
ED General - General Chief Complaint: Shortness Of Breath Stated Complaint: DIFFICULTY BREATHING Time Seen by Provider: 02/26/18 02:36 Notes: 57-year-old male presents with shortness of breath onset 3 hours ago non- positional constant "like my throat is closing up". He does not have pleuritic pain or chest pain or chest pressure. He denies leg edema. The patient has a history of multiple ED presentations for shortness of breath most recently 2 weeks ago when he was found to have an elevated troponin and was transferred to [facility]. He says that he had a catheterization through his wrist but did not receive stents, but was diagnosed with heart failure and is 100% compliance with all of his medicines. TRAVEL OUTSIDE OF THE [place] IN LAST 30 DAYS: No - Related Data Allergies/Adverse Reactions: Penicillins Allergy (Unknown, Verified 02/21/18 04:25) Past Medical History - Social History Smoking Status: Current Every Day Smoker Smoking Education Provided: Yes - The patient ED visit today was directly related to their abuse of tobacco. Family History: Reviewed & Not Pertinent - Past Medical History Cardiac Medical History: Reports: Hx Hypercholesterolemia - no meds, Hx Hypertension Endocrine Medical History: Reports: Hx Diabetes Mellitus Type 1, Hx Diabetes Mellitus Type 2 Renal/ Medical History: Denies: Hx Peritoneal Dialysis Malignancy Medical History: Reports Hx Colorectal Cancer Psychiatric Medical History: Reports: Hx Anxiety, Hx Depression Past Surgical History: Reports: Hx Appendectomy, Hx Bowel Surgery - cancer, Hx Cholecystectomy - Immunizations Hx Diphtheria, Pertussis, Tetanus Vaccination: Yes Review of Systems - Review of Systems Notes: REVIEW OF SYSTEMS GEN: Denies fever, chills, weight loss ENT: Denies sore throat, nasal discharge, ear pain EYES: Denies blurry vision, eye pain, discharge CV: Denies chest pain, positive palpitations, denies edema RESP: Shortness of breath occasional orthopnea GI: Denies abdominal pain, nausea, vomiting, diarrhea MSK: Denies joint pain/swelling, edema, SKIN: Denies rash, skin lesions LYMPH: Denies swollen glands/lymph nodes NEURO: Denies headache, focal weakness or numbness, dizziness PSYCH: Denies depression, suicidal or homicidal ideation PHYSICAL EXAMINATION General: No acute distress, well-nourished Head: Atraumatic, normocephalic ENT: Mouth normal, oropharynx moist, no exudates or tonsillar enlargement Eyes: Conjunctiva normal, pupils equal, lids normal Neck: No JVD, supple, no guarding CVS: Normal rate, regular rhythm, no murmurs Resp: No resp distress, equal and normal breath sounds bilaterally GI: Nondistended, soft, no tenderness to palpation, no rebound or guarding Ext: No deformities, no edema, normal range of motion in upper and lower ext Back: No CVA or midline TTP Skin: No rash, warm Lymphatic: No lymphadeopathy noted Neuro: Awake, alert. Face symmetric. GCS 15. Physical Exam - Vital signs Vitals: Temp Pulse Resp BP Pulse Ox 97.5 F 100 16 190/120 H 95 02/26/18 02:19 02/26/18 02:19 02/26/18 02:19 02/26/18 02:19 02/26/18 02:19 Course - Re-evaluation Re-evalutation: 02/26/18 02:45 Patient with recent onset heart failure and long smoking history presents with shortness of breath in the setting of acute hypertension. Suspect diastolic heart failure as a cause, also has palpitations but pulse is regular on exam. Will check for acute ischemic change on EKG, arrhythmia, x-ray BNP and labs for elevated troponin/heart failure. Will use empiric Nitropaste to gently lower his pressure if we do find that he has some pulmonary edema or there is a suspicion for hypertensive emergency here. 02/26/18 03:08 Patient's EKG shows nonspecific changes but no definite STEMI. There is no ST depression either. He complains of tightness in his throat as well, but his exam is normal. He has no oral pharyngeal swelling. He has multiple prior presentations for anxiety. Patient was noted to be incidentally hypoglycemic, without symptoms. He ate several crackers and peanut butter without any difficulty swallowing or talking. 02/26/18 03:59 She is reassessed at 3:50 AM. His pressures come down to the 150 range. He is less short of breath now. He states that "it feels like I have sleep apnea" except when he is awake. He denies current difficulty swallowing or breathing and has no chest pain. His troponin is negative, and his BNP is slightly elevated, but less high than it was on prior visits. He has some hypokalemia which I repleted orally. I do not believe this patient shortness of breath as a result of acute diastolic heart failure, pulmonary edema, pneumonia or acute coronary syndrome based on his ED workup and I think he is safe for discharge, he has an appointment in 4 days with his primary. I have discussed with the patient there likely diagnosis, aftercare plan, follow -up plans and my usual and customary return precautions. They verbalized understanding of this. - Vital Signs Vital signs: Temp Pulse Resp BP Pulse Ox 97.5 F 100 31 H 165/101 H 95 02/26/18 02:19 02/26/18 02:19 02/26/18 03:01 02/26/18 03:01 02/26/18 03:01 - Laboratory Result Diagrams: 02/26/18 02:36 02/26/18 02:36 Laboratory results interpreted by me: 02/26/18 02/26/18 02/26/18 02:36 02:36 02:36 RDW 14.2 H Seg Neutrophils % 30.8 L Lymphocytes % 55.7 H Sodium 146.2 H Potassium 3.2 L Chloride 109 H BUN 21 H Glucose 52 L NT-Pro-B Natriuret Pep 2870 H - Diagnostic Test Radiology reviewed: Image reviewed, Reports reviewed - EKG Interpretation by Me EKG shows normal: Sinus rhythm Rate: Normal When compared to previous EKG there are: Changes noted - New upright T waves in lead III, as well as V4 through V6, they were inverted on previous EKGs with no acute ST elevation or depression. Discharge - Discharge Clinical Impression: Shortness of breath Condition: Good Disposition: HOME, SELF-CARE Instructions: Congestive Heart Failure ([facility]) Additional Instructions: Please follow-up with your regular doctor in 4 days as already
[2018-02-26 02:49] LABS: ABSOLUTE BASOPHILS # (AUTO) 0.1 10^3/uL (0.0-0.2); ABSOLUTE EOSINOPHILS # (AUTO) 0.2 10^3/uL (0.0-0.6); ABSOLUTE LYMPHOCYTES (AUTO) 4.3 10^3/uL (0.5-4.7); ABSOLUTE MONOCYTES (AUTO) 0.8 10^3/uL (0.1-1.4); ABSOLUTE NEUT (AUTO) 2.4 10^3/uL (1.7-8.2); BASOPHILS % (AUTO) 0.7 % (0-2); HEMATOCRIT 44.4 % (37.9-51.0); HEMOGLOBIN 15.7 g/dL (13.5-17.0); LYMPHOCYTES % (AUTO) 55.7 % (13-45); MEAN CORPUSCULAR HEMOGLOBIN 30.1 pg (27.0-33.4); MEAN CORPUSCULAR HGB CONC 35.4 g/dL (32.0-36.0); MEAN CORPUSCULAR VOLUME 85 fl (80-97); MONOCYTES % (AUTO) 9.8 % (3-13); PLATELET COUNT 181 10^3/uL (150-450); RED BLOOD COUNT 5.22 10^6/uL (4.35-5.55); RED CELL DISTRIBUTION WIDTH 14.2 % (11.5-14.0); SEGMENTED NEUTROPHILS % (AUTO) 30.8 % (42-78); TOTAL CELLS COUNTED % (AUTO) 100 %; WHITE BLOOD COUNT 7.8 10^3/uL (4.0-10.5)
[2018-02-26 02:57] LABS: ANION GAP 11 (5-19); BLOOD UREA NITROGEN 21 mg/dL (7-20); CALCIUM 9.1 mg/dL (8.4-10.2); CARBON DIOXIDE 26 mmol/L (22-30); CHLORIDE 109 mmol/L (98-107); GLUCOSE 52 mg/dL (75-110); POTASSIUM 3.2 mmol/L (3.6-5.0); SODIUM 146.2 mmol/L (137-145)
[2018-02-26 03:10] LABS: TROPONIN I 0.022 ng/mL
[2018-02-26] MEDS ORDERED: POTASSIUM CHLORIDE 20 MEQ/15 ML UDCUP PO ONE (03:18)
[2018-02-26] MEDS ORDERED: NITROGLYCERIN 2.5 MG (0.1 MG/HR) PATCH.TD24 TD ONE (03:30)
[2018-02-26] MEDS ORDERED: ASPIRIN 325 MG TABLET PO ONE (03:32)
--- NOTE | 2018-02-26 03:44 | RADIOLOGY REPORT (SQ) ---
EXAM DESCRIPTION: XR CHEST 1 VIEW COMPLETED DATE/TME: 02/26/2018 02:37 CLINICAL HISTORY: 57 years, Male, sob COMPARISON: 02/09/2018 chest x-ray NUMBER OF VIEWS: 2 TECHNIQUE: AP portable upright chest LIMITATIONS: None. FINDINGS: Heart size at the upper limits of normal. Atheromatous change of the thoracic aorta. Underlying hyperinflation. No pneumothorax. Lungs are clear IMPRESSION: Borderline cardiomegaly with underlying hyperinflation 2010 [facility] [employer]- All Rights Reserved
[2018-02-26] MEDS ORDERED: NITROGLYCERIN 2.5 MG (0.1 MG/HR) PATCH.TD24 ONE (03:47)
[2018-02-26 04:04] VITALS: BP 150/89
--- NOTE | 2018-02-26 10:42 | EKG REPORT ---
SEVERITY:- ABNORMAL ECG - SINUS RHYTHM PROBABLE LEFT ATRIAL ABNORMALITY PROBABLE LEFT VENTRICULAR HYPERTROPHY BORDERLINE PROLONGED QT INTERVAL : Confirmed by: Ben Melendez 26-Feb-2018 10:41:55
== END 2018-02-26 04:09 | disposition home or self-care (01) ==
LOC: ER 02:12
DX: I11.0 Hypertensive heart disease with heart failure (principal); I50.9 Heart failure, unspecified; E87.6 Hypokalemia; E11.649 Type 2 diabetes mellitus with hypoglycemia without coma; R06.02 Shortness of breath; R06.01 Orthopnea; R09.89 Other specified symptoms and signs involving the circulatory and respiratory systems; F17.200 Nicotine dependence, unspecified, uncomplicated; Z85.048 Personal history of other malignant neoplasm of rectum, rectosigmoid junction, and anus; Z88.0 Allergy status to penicillin
CPT/HCPCS: 36415; 71045; 80048; 82962; 83880; 84484; 85025; 93005; 93010; 99285

== ENCOUNTER 2018-04-01 05:59 | Emergency (ER) | payer SELFPAY ==
--- NOTE | 2018-04-01 06:25 | ER Document Report ---
ED General - General Chief Complaint: Shortness Of Breath Stated Complaint: SHORTNESS OF BREATH Time Seen by Provider: 04/01/18 06:22 Notes: Patient is a diabetes mellitus, CHF that presents to the emergency department for chief complaint of shortness of breath. Patient states that he woke up because he felt short of breath while lying down this evening and this morning, he was told by his extractor tender raw stock, if he experiences symptoms, to come to the emergency department to be evaluated. He is currently on Lasix, and Entresto and carvedilol, he was recently diagnosed with CHF. This makes him very nervous, he does have baseline anxiety, he usually takes hydroxyzine, which she is out of. He states he cannot discern whether this is his CHF or his anxiety so he wanted to be evaluated. He denies having any chest pain, recent fevers, chills, night sweats, cough, leg swelling, nausea or vomiting. Past Medical History: Diabetes mellitus, CHF, hypertension, history of colon cancer status post resection in remission, anxiety Past Surgical History: Colon resection, cholecystectomy Social History: Admits to smoking cigarettes daily, denies alcohol or drug use Family History: Reviewed and noncontributory for presenting illness Allergies: Reviewed, see documented allergy list. REVIEW OF SYSTEMS: Other than noted above, the 12 point review of systems was reviewed with the patient and were negative, all pertinent findings are included in the HPI. PHYSICAL EXAMINATION: Vital signs reviewed, nursing noted reviewed. GENERAL: Well-appearing, well-nourished and in no acute distress. HEAD: Atraumatic, normocephalic. EYES: Eyes appear normal, extraocular movements intact, sclera anicteric, conjunctiva are normal. ENT: nares patent, oropharynx clear without exudates. Moist mucous membranes. NECK: Normal range of motion, supple without lymphadenopathy LUNGS: Breath sounds clear to auscultation bilaterally and equal. No wheezes rales or rhonchi. HEART: Regular rate and rhythm without murmurs ABDOMEN: Soft, nontender, normoactive bowel sounds. No rebound, guarding, or rigidity. No masses appreciated. EXTREMITIES: Nontender, good range of motion, no pitting or edema. NEUROLOGICAL: No focal neurological deficits. Moves all extremities spontaneously Motor and sensory grossly intact on exam. PSYCH: Normal mood, normal affect. SKIN: Warm, Dry, normal turgor, no rashes or lesions noted on exposed skin TRAVEL OUTSIDE OF THE [place] IN LAST 30 DAYS: No - Related Data Allergies/Adverse Reactions: Penicillins Allergy (Unknown, Verified 02/21/18 04:25) Past Medical History - Social History Smoking Status: Current Every Day Smoker Family History: Reviewed & Not Pertinent - Past Medical History Cardiac Medical History: Reports: Hx Hypercholesterolemia - no meds, Hx Hypertension Endocrine Medical History: Reports: Hx Diabetes Mellitus Type 1, Hx Diabetes Mellitus Type 2 Renal/ Medical History: Denies: Hx Peritoneal Dialysis Malignancy Medical History: Reports Hx Colorectal Cancer Psychiatric Medical History: Reports: Hx Anxiety, Hx Depression Past Surgical History: Reports: Hx Appendectomy, Hx Bowel Surgery - cancer, Hx Cholecystectomy - Immunizations Hx Diphtheria, Pertussis, Tetanus Vaccination: Yes Physical Exam - Vital signs Vitals: Temp Pulse Resp BP Pulse Ox 97.8 F 77 18 148/83 H 95 04/01/18 06:08 04/01/18 06:08 04/01/18 06:08 04/01/18 06:08 04/01/18 06:08 Course - Re-evaluation Re-evalutation: Patient seen and examined vital signs reviewed. Laboratory data and imaging were ordered as appropriate for the patient's presenting symptoms and complaint, with consideration of any critical or life threatening conditions that may be associated with their obtained history and exam as noted above. Patient was treated with hydroxyzine, and given potassium for his hypokalemia Results were reviewed when available and demonstrated potassium 3.1, patient is current on Lasix, he was on potassium supplements, but then was placed on Entresto, and taken off of that, I discussed with him to follow-up with his extractor tender raw stock regarding this, will place him on an extra 10 mEq once a day for 7 days and then follow-up with his extractor tender raw stock he has an appointment coming up just after the new year. The patient was re-evaluated and was stable, and felt improved Evaluation was most consistent with dyspnea, likely anxiety related, and hypokalemia. Will refill his hydroxyzine as well. Results were discussed with the patient at this point, after careful consideration I feel that that patient can be discharged from the emergency department, the patient was educated treatments and reasons to return to the emergency department based on their presumed diagnosis as noted above, they were advised to followup with a primary care physician in 2-3 days. Patient was agreeable to plan of care. *Note is created using voice recognition software and may contain spelling, syntax or grammatical errors. Laboratory 04/01/18 04/01/18 04/01/18 06:34 06:34 06:34 WBC 6.0 RBC 4.85 Hgb 14.7 Hct 41.2 MCV 85 MCH 30.2 MCHC 35.6 RDW 13.5 Plt Count 220 Seg Neutrophils % 51.5 Lymphocytes % 38.6 Monocytes % 6.5 Eosinophils % 2.5 Basophils % 0.9 Absolute Neutrophils 3.1 Absolute Lymphocytes 2.3 Absolute Monocytes 0.4 Absolute Eosinophils 0.2 Absolute Basophils 0.1 Sodium 140.6 Potassium 3.1 L Chloride 105 Carbon Dioxide 28 Anion Gap 8 BUN 15 Creatinine 0.69 Est GFR ( Amer) > 60 Est GFR (Non-Af Amer) > 60 Glucose 280 H Calcium 8.9 Total Bilirubin 0.8 Direct Bilirubin 0.4 Neonat Total Bilirubin Not Reportable Neonat Direct Bilirubin Not Reportable Neonat Indirect Bili Not Reportable AST 44 ALT 45 Alkaline Phosphatase 80 Troponin I < 0.012 NT-Pro-B Natriuret Pep 1920 H Total Protein 6.3 Albumin 3.4 L Chest X-Ray 04/01/18 06:22 IMPRESSION: No acute cardiopulmonary findings. - Vital Signs Vital signs: Temp Pulse Resp BP Pulse Ox 97.8 F 77 21 H 167/94 H 99 04/01/18 06:08 04/01/18 06:08 04/01/18 07:01 04/01/18 07:01 04/01/18 07:01 - Laboratory Result Diagrams: 04/01/18 06:34 04/01/18 06:34 Laboratory results interpreted by me: 04/01/18 04/01/18 06:34 06:34 Potassium 3.1 L Glucose 280 H NT-Pro-B Natriuret Pep 1920 H Albumin 3.4 L - EKG Interpretation by Me Additional EKG results interpreted by me: EKG demonstrates sinus rhythm with a ventricular rate of 74 bpm, normal axis, QTC 471 ms, no evidence of acute ischemia on this EKG, this is compared to prior EKG from 02/26/2018, without significant change. Discharge - Discharge Clinical Impression: Hypokalemia, Hyperglycemia Dyspnea Qualifiers: Dyspnea type: unspecified Qualified Code(s): R06.00 - Dyspnea, unspecified Condition: Stable Disposition: HOME, SELF-CARE Instructions: Dyspnea, Nonspecific ([facility]) Additional Instructions: Please follow-up with your extractor tender raw stock, regarding her potassium levels, take the prescribed potassium once daily for the next week, you may take the hydroxyzine, 3-4 times daily as needed for anxiety symptoms, if you have worsening or return of symptoms and feel comfortable, do not hesitate to return to the emergency department. Prescriptions: Hydroxyzine HCl [Atarax 25 mg Tablet] 1 tab PO Q8H PRN #30 tablet PRN Reason: Anxiety Potassium Chloride [Klor-Con 10 Meq Capsule ER] 10 meq PO DAILY #7 tablet.sa Referrals: SULY ESPINOZA MD [Primary Care Provider] - Follow up in 3-5 days
[2018-04-01] MEDS ORDERED: HYDROXYZINE PAMOATE 25 MG CAPSULE PO ONE (06:34)
[2018-04-01 06:44] LABS: ABSOLUTE BASOPHILS # (AUTO) 0.1 10^3/uL (0.0-0.2); ABSOLUTE EOSINOPHILS # (AUTO) 0.2 10^3/uL (0.0-0.6); ABSOLUTE LYMPHOCYTES (AUTO) 2.3 10^3/uL (0.5-4.7); ABSOLUTE MONOCYTES (AUTO) 0.4 10^3/uL (0.1-1.4); ABSOLUTE NEUT (AUTO) 3.1 10^3/uL (1.7-8.2); BASOPHILS % (AUTO) 0.9 % (0-2); EOSINOPHILS % (AUTO) 2.5 % (0-6); HEMATOCRIT 41.2 % (37.9-51.0); HEMOGLOBIN 14.7 g/dL (13.5-17.0); LYMPHOCYTES % (AUTO) 38.6 % (13-45); MEAN CORPUSCULAR HEMOGLOBIN 30.2 pg (27.0-33.4); MEAN CORPUSCULAR HGB CONC 35.6 g/dL (32.0-36.0); MEAN CORPUSCULAR VOLUME 85 fl (80-97); MONOCYTES % (AUTO) 6.5 % (3-13); PLATELET COUNT 220 10^3/uL (150-450); RED BLOOD COUNT 4.85 10^6/uL (4.35-5.55); RED CELL DISTRIBUTION WIDTH 13.5 % (11.5-14.0); SEGMENTED NEUTROPHILS % (AUTO) 51.5 % (42-78); TOTAL CELLS COUNTED % (AUTO) 100 %
--- NOTE | 2018-04-01 07:00 | RADIOLOGY REPORT (SQ) ---
EXAM DESCRIPTION: XR CHEST 1 VIEW COMPLETED DATE/TME: 04/01/2018 06:22 CLINICAL HISTORY: 58 years Male, shortness of breath COMPARISON:02/26/2018 NUMBER OF VIEWS/TECHNIQUE: 1/AP FINDINGS: Adequate lung volume, clear parenchyma, normal cardiac silhouette, atherosclerosis, and intact bony thorax. IMPRESSION: No acute cardiopulmonary findings.
[2018-04-01 07:14] LABS: ALANINE AMINOTRANSFERASE 45 U/L (21-72); ALBUMIN 3.4 g/dL (3.5-5.0); ALKALINE PHOSPHATASE 80 U/L (38-126); ANION GAP 8 (5-19); ASPARTATE AMINO TRANSFERASE 44 U/L (17-59); BILIRUBIN,DIRECT 0.4 mg/dL (0.0-0.4); BILIRUBIN,TOTAL 0.8 mg/dL (0.2-1.3); BLOOD UREA NITROGEN 15 mg/dL (7-20); CALCIUM 8.9 mg/dL (8.4-10.2); CARBON DIOXIDE 28 mmol/L (22-30); CHLORIDE 105 mmol/L (98-107); GLUCOSE 280 mg/dL (75-110); POTASSIUM 3.1 mmol/L (3.6-5.0); SODIUM 140.6 mmol/L (137-145); TOTAL PROTEIN 6.3 g/dL (6.3-8.2)
[2018-04-01 07:25] LABS: NT PRO BNP 1920 pg/mL (5-900)
[2018-04-01 07:27] LABS: TROPONIN I < 0.012 ng/mL
[2018-04-01] MEDS ORDERED: POTASSIUM CHLORIDE 10 MEQ CAPSULE.ER PO ONE (07:27)
[2018-04-01 07:50] VITALS: BP 155/91
--- NOTE | 2018-04-01 07:51 | EKG REPORT ---
SEVERITY:- BORDERLINE ECG - SINUS RHYTHM PROBABLE LEFT ATRIAL ABNORMALITY BORDERLINE T WAVE ABNORMALITIES : Confirmed by: Paulie Miller MD 01-Apr-2018 07:50:36
== END 2018-04-01 08:00 | disposition home or self-care (01) ==
LOC: ER 05:59
DX: E11.65 Type 2 diabetes mellitus with hyperglycemia (principal); E87.6 Hypokalemia; R06.02 Shortness of breath; R06.00 Dyspnea, unspecified; F17.200 Nicotine dependence, unspecified, uncomplicated; E78.00 Pure hypercholesterolemia, unspecified; Z88.0 Allergy status to penicillin; Z90.49 Acquired absence of other specified parts of digestive tract
CPT/HCPCS: 36415; 71045; 80053; 83880; 84484; 85025; 93005; 93010; 99285

== ENCOUNTER 2018-06-23 10:57 | Emergency (ER) | payer MEDICAID, OTHER ==
--- NOTE | 2018-06-23 11:40 | ER Document Report ---
ED Medical Screen (RME) - General Chief Complaint: Pain All Over Stated Complaint: BACK/NECK/SHOULDER/LEG PAIN Primary Care Provider: SULY ESPINOZA MD [Primary Care Provider] - Follow up as needed TRAVEL OUTSIDE OF THE [place] IN LAST 30 DAYS: No - HPI Notes: 06/23/18 11:39 Patient is complaining of pain all over his body. Today he woke up this morning with neck pain. Denies any history of trauma or injury. The pain is localized mostly on the right side of his body. - Related Data Allergies/Adverse Reactions: Penicillins Allergy (Unknown, Verified 06/23/18 10:59) Past Medical History - Social History Frequency of alcohol use: None Drug Abuse: None - Past Medical History Cardiac Medical History: Reports: Hx Hypercholesterolemia - no meds, Hx Hypertension Endocrine Medical History: Reports: Hx Diabetes Mellitus Type 1, Hx Diabetes Mellitus Type 2 Renal/ Medical History: Denies: Hx Peritoneal Dialysis Malignancy Medical History: Reports Hx Colorectal Cancer Psychiatric Medical History: Reports: Hx Anxiety, Hx Depression Past Surgical History: Reports: Hx Appendectomy, Hx Bowel Surgery - cancer, Hx Cholecystectomy - Immunizations Hx Diphtheria, Pertussis, Tetanus Vaccination: Yes History of Influenza Vaccine for 01/2017 - 06/2017 Season: No Physical Exam - Vital signs Vitals: Temp Pulse Resp BP Pulse Ox 99.2 F 76 18 177/96 H 98 06/23/18 11:16 06/23/18 11:16 06/23/18 11:16 06/23/18 11:16 06/23/18 11:16 Course - Vital Signs Vital signs: Temp Pulse Resp BP Pulse Ox 99.2 F 76 18 177/96 H 98 06/23/18 11:16 06/23/18 11:16 06/23/18 11:16 06/23/18 11:16 06/23/18 11:16 Doctor's Discharge - Discharge Referrals: SULY ESPINOZA MD [Primary Care Provider] - Follow up as needed
--- NOTE | 2018-06-23 12:17 | RADIOLOGY REPORT (SQ) ---
EXAM DESCRIPTION: CERV SP 4 OR 5 VIEWS COMPLETED DATE/TIME: 06/23/2018 12:07 pm REASON FOR STUDY: neck pain COMPARISON: None. NUMBER OF VIEWS: Five views including obliques. TECHNIQUE: AP, lateral, obliques and odontoid radiographic images acquired of the cervical spine. LIMITATIONS: None. FINDINGS: MINERALIZATION: Normal. SEGMENTATION: Normal. ALIGNMENT: 4 to 5 mm anterolisthesis of C 3 on C 4 and 2 to 3 mm anterolisthesis of C2 on C3 and C 4 on C5. VERTEBRAE: Maintained height. No fracture or worrisome bone lesion. DISCS: Multilevel disc space narrowing with osteophytes. POSTERIOR ELEMENTS: Pedicles and facets are intact. No posterior arch defects. Facet arthropathy is present. FORAMINA: Narrowed at the levels of maximal disc and facet disease. HARDWARE: None in the spine. PARASPINAL SOFT TISSUES: Normal. OTHER: No other significant finding. IMPRESSION: SPONDYLOSIS WITHOUT BONE LESION OR FRACTURE. TECHNICAL DOCUMENTATION: JOB ID: [id number] [employer]- All Rights Reserved Reading location - IP/workstation name: [email or web address]
[2018-06-23 12:21] LABS: ABSOLUTE EOSINOPHILS # (AUTO) 0.1 10^3/uL (0.0-0.6); ABSOLUTE LYMPHOCYTES (AUTO) 1.9 10^3/uL (0.5-4.7); ABSOLUTE MONOCYTES (AUTO) 0.7 10^3/uL (0.1-1.4); BASOPHILS % (AUTO) 0.5 % (0-2); HEMATOCRIT 46.2 % (37.9-51.0); HEMOGLOBIN 16.4 g/dL (13.5-17.0); LYMPHOCYTES % (AUTO) 21.8 % (13-45); MEAN CORPUSCULAR HEMOGLOBIN 30.3 pg (27.0-33.4); MEAN CORPUSCULAR HGB CONC 35.5 g/dL (32.0-36.0); MEAN CORPUSCULAR VOLUME 85 fl (80-97); MONOCYTES % (AUTO) 8.5 % (3-13); PLATELET COUNT 190 10^3/uL (150-450); RED BLOOD COUNT 5.42 10^6/uL (4.35-5.55); RED CELL DISTRIBUTION WIDTH 13.8 % (11.5-14.0); SEGMENTED NEUTROPHILS % (AUTO) 68.2 % (42-78); TOTAL CELLS COUNTED % (AUTO) 100 %; WHITE BLOOD COUNT 8.8 10^3/uL (4.0-10.5)
[2018-06-23 12:38] LABS: ALANINE AMINOTRANSFERASE 66 U/L (21-72); ALBUMIN 4.3 g/dL (3.5-5.0); ALKALINE PHOSPHATASE 92 U/L (38-126); ANION GAP 10 (5-19); ASPARTATE AMINO TRANSFERASE 40 U/L (17-59); BILIRUBIN,DIRECT 0.3 mg/dL (0.0-0.4); BILIRUBIN,TOTAL 1.6 mg/dL (0.2-1.3); BLOOD UREA NITROGEN 15 mg/dL (7-20); CALCIUM 9.3 mg/dL (8.4-10.2); CARBON DIOXIDE 30 mmol/L (22-30); CHLORIDE 101 mmol/L (98-107); CREATINE KINASE 42 U/L (55-170); GLUCOSE 188 mg/dL (75-110); POTASSIUM 3.5 mmol/L (3.6-5.0); SODIUM 140.9 mmol/L (137-145); TOTAL PROTEIN 7.5 g/dL (6.3-8.2)
[2018-06-23] MEDS ORDERED: ACETAMINOPHEN 325 MG TABLET PO ONE (13:00)
[2018-06-23] MEDS ORDERED: LIDOCAINE 5% (700 MG) TRANSDERMAL ADH..PATCH TP ONE (13:00)
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
[2018-06-23 13:39] LABS: APPEARANCE,URINE CLOUDY; BILIRUBIN,URINE NEGATIVE (NEGATIVE); COLOR,URINE YELLOW; GLUCOSE, URINE NEGATIVE (NEGATIVE); KETONES,URINE NEGATIVE (NEGATIVE); LEUKOCYTE ESTERASE,URINE LARGE (NEGATIVE); NITRITE,URINE NEGATIVE (NEGATIVE); PROTEIN,URINE 100 mg/dL (NEGATIVE); URINE SPECIFIC GRAVITY 1.013; UROBILINOGEN,URINE NEGATIVE mg/dL (<2.0)
--- NOTE | 2018-06-23 14:34 | RADIOLOGY REPORT (SQ) ---
EXAM DESCRIPTION: CT CERVICAL SPINE WITHOUT COMPLETED DATE/TIME: 06/23/2018 2:08 pm REASON FOR STUDY: neck pain COMPARISON: None. TECHNIQUE: Axial images acquired through the cervical spine without intravenous contrast. Images re viewed with lung, soft tissue and bone windows. Reconstructed coronal and sagittal MPR images review ed. Images stored on PACS. All CT scanners at this facility use dose modulation, iterative reconstruction, and/or weight based d osing when appropriate to reduce radiation dose to as low as reasonably achievable (ALARA). [facility]: Dose Right [facility]: CareDose [facility]: Dose Right [facility]: Teradose 4D [facility]: [employer] RADIATION DOSE: CT Rad equipment meets quality standard of care and radiation dose reduction techniq ues were employed. CTDIvol: 15.9 mGy. DLP: 340 mGy-cm. mGy. LIMITATIONS: None. FINDINGS: ALIGNMENT: Mild anterolisthesis at C2-3, C3-4. This looks degenerative. MINERALIZATION: Normal. VERTEBRAL BODIES: No fractures or dislocation. DISCS: Disc disease with narrowing, most pronounced at C5-6 and C6-7 with small associated osteophyte s. FACETS, LATERAL MASSES, POSTERIOR ELEMENTS: Multilevel facet arthropathy with irregularity, associate d cysts and erosions and spurring. HARDWARE: None in the spine. VISUALIZED RIBS: No fractures. LUNG APICES AND SOFT TISSUES: Apical emphysema. OTHER: No other significant finding. IMPRESSION: CHRONIC DEGENERATIVE CHANGES. NO ACUTE FINDINGS. TECHNICAL DOCUMENTATION: JOB ID: [id number] Quality ID # [id number]: Final reports with documentation of one or more dose reduction techniques (e.g., Au tomated exposure control, adjustment of the mA and/or kV according to patient size, use of iterative reconstruction technique) 2010 [employer]- All Rights Reserved Reading location - IP/workstation name: [email or web address]
--- NOTE | 2018-06-23 14:41 | RADIOLOGY REPORT (SQ) ---
EXAM DESCRIPTION: CT ABD/PELVIS NO ORAL OR IV COMPLETED DATE/TIME: 06/23/2018 2:08 pm REASON FOR STUDY: flank pain, uti COMPARISON: None. TECHNIQUE: CT scan of the abdomen and pelvis performed without intravenous or oral contrast. Images reviewed with lung, soft tissue, and bone windows. Reconstructed coronal and sagittal MPR images revi ewed. All images stored on PACS. All CT scanners at this facility use dose modulation, iterative reconstruction, and/or weight based d osing when appropriate to reduce radiation dose to as low as reasonably achievable (ALARA). [facility]: Dose Right [facility]: CareDose [facility]: Dose Right [facility]: Teradose 4D [facility]: Smart [employer] RADIATION DOSE: CT Rad equipment meets quality standard of care and radiation dose reduction techniq ues were employed. CTDIvol: 14.4 mGy. DLP: 756 mGy-cm.mGy. LIMITATIONS: None. FINDINGS: LOWER CHEST: No significant findings. No nodules or infiltrates. NON-CONTRASTED LIVER, SPLEEN, ADRENALS: Evaluation limited by lack of IV contrast. No identified sign ificant masses. PANCREAS: No masses. No peripancreatic inflammatory changes. GALLBLADDER: Surgically absent. RIGHT KIDNEY AND URETER: Nonobstructive lower pole punctate nephrolithiasis. No ureteral calculi. LEFT KIDNEY AND URETER: No solid masses. No significant calcification. No hydronephrosis or hydrouret er. AORTA AND RETROPERITONEUM: No aneurysm. No retroperitoneal masses or adenopathy. BOWEL AND PERITONEAL CAVITY: Mild areas of apparent wall thickening in the ascending colon and mid tr ansverse colon. Potentially simply underdistention. No dilated loops. No ascites or abnormal gas. APPENDIX: Not visualized. PELVIS, BLADDER, AND ABDOMINAL WALL:Prostate enlarged. Bladder dome wall thickening, nonspecific. N o discrete mass. Further evaluation is probably warranted, however. BONES: No significant findings. OTHER: No other significant finding. IMPRESSION: 1. Probable artifactual thickening in the ascending and transverse colon. Colitis is felt to be less likely. 2. Nonobstructive right nephrolithiasis. 3. Mild wall thickening in the bladder dome. Consider elective urology followup. TECHNICAL DOCUMENTATION: JOB ID: [id number] Quality ID # [id number]: Final reports with documentation of one or more dose reduction techniques (e.g., Au tomated exposure control, adjustment of the mA and/or kV according to patient size, use of iterative reconstruction technique) 2010 [employer]- All Rights Reserved Reading location - IP/workstation name: [email or web address]
[2018-06-23] MEDS ORDERED: SULFAMETHOXAZOLE/TRIMETHOPRIM 800-160 MG TABLET PO ONE (14:54)
[2018-06-23] MEDS ORDERED: CEFTRIAXONE 1 GM/D5W RTU 1 GM/50 ML RTUPB IV ONE (14:54)
[2018-06-23 15:41] VITALS: BP 163/87
== END 2018-06-23 16:01 | disposition home or self-care (01) ==
LOC: ER 10:57
DX: M47.22 Other spondylosis with radiculopathy, cervical region (principal); N39.0 Urinary tract infection, site not specified; M54.5 Low back pain; R07.9 Chest pain, unspecified; M62.830 Muscle spasm of back; F17.200 Nicotine dependence, unspecified, uncomplicated; I10 Essential (primary) hypertension; E11.9 Type 2 diabetes mellitus without complications; Z88.0 Allergy status to penicillin; Z85.048 Personal history of other malignant neoplasm of rectum, rectosigmoid junction, and anus
CPT/HCPCS: 99284; 96365; 36415; 87086; 82550; 85025; 87088; 80053; 81001; 87186; 72050; 72125; 74176; J0696

== ENCOUNTER 2019-06-08 12:21 | Emergency (ER) | payer OTHER ==
[2019-06-08 12:30] VITALS: BP 120/77
[2019-06-08] MEDS ORDERED: DIPHENHYDRAMINE HCL 25 MG CAPSULE PO ONE (15:04)
[2019-06-08] MEDS ORDERED: KETOROLAC TROMETHAMINE INJ/PF 30 MG/1 ML SDV IM ONE (15:04)
[2019-06-08] MEDS ORDERED: METOCLOPRAMIDE HCL INJ/PF 10 MG/2 ML SDV IM ONE (15:04)
--- NOTE | 2019-06-08 15:07 | ER Document Report ---
ED Medical Screen (RME) - General Chief Complaint: Headache Stated Complaint: MIGRAINE Time Seen by Provider: 06/08/19 14:59 Primary Care Provider: SULY ESPINOZA MD [Primary Care Provider] - Follow up as needed Notes: Patient is a 59-year-old male with a history of migraines who presents emergency department with a chief complaint of headache. Patient reports he was up this morning with anxiety when he developed a headache around 5 AM. Patient reports this does feel like his typical migraine headache. Patient does not take anything for his migraines and did not take anything today for his headache. Patient reports the headache starts in the right posterior head and radiates upward into the back of bilateral eyes. Patient denies visual changes. Patient denies fever. Patient denies neck stiffness. Patient reports nausea without vomiting or diarrhea. TRAVEL OUTSIDE OF THE [place] IN LAST 30 DAYS: No - Related Data Allergies/Adverse Reactions: Penicillins Allergy (Unknown, Verified 06/23/18 10:59) Past Medical History - Social History Frequency of alcohol use: Rare Drug Abuse: None - Past Medical History Cardiac Medical History: Reports: Hx Hypercholesterolemia - no meds, Hx Hypertension Endocrine Medical History: Reports: Hx Diabetes Mellitus Type 1, Hx Diabetes Mellitus Type 2 Renal/ Medical History: Denies: Hx Peritoneal Dialysis Malignancy Medical History: Reports Hx Colorectal Cancer Musculoskeltal Medical History: Reports Hx Arthritis Psychiatric Medical History: Reports: Hx Anxiety, Hx Depression Past Surgical History: Reports: Hx Appendectomy, Hx Bowel Surgery - cancer, Hx Cholecystectomy - Immunizations Hx Diphtheria, Pertussis, Tetanus Vaccination: Yes Physical Exam - Vital signs Vitals: Temp Pulse Resp BP Pulse Ox 97.7 F 66 20 120/77 98 06/08/19 12:28 06/08/19 12:28 06/08/19 12:28 06/08/19 12:28 06/08/19 12:28 - HEENT Head: Normocephalic Pupils: PERRL Course - Re-evaluation Re-evalutation: 06/08/19 15:07 We will order migraine cocktail to be given here in triage. Patient no acute distress. I have greeted and performed a rapid initial assessment of this patient. A comprehensive ED assessment and evaluation of the patient, analysis of test re sults and completion of the medical decision making process will be conducted by additional ED providers. - Vital Signs Vital signs: Temp Pulse Resp BP Pulse Ox 97.7 F 66 20 120/77 98 06/08/19 12:28 06/08/19 12:28 06/08/19 12:28 06/08/19 12:28 06/08/19 12:28 Doctor's Discharge - Discharge Referrals: SULY ESPINOZA MD [Primary Care Provider] - Follow up as needed
== END 2019-06-08 18:45 | disposition left against medical advice (07) ==
LOC: ER 12:21
DX: Z53.21 Procedure and treatment not carried out due to patient leaving prior to being seen by health care provider (principal); G40.909 Epilepsy, unspecified, not intractable, without status epilepticus
CPT/HCPCS: 99281; 96374; 96375; J1885; J2765

== ENCOUNTER 2020-01-26 04:00 | Emergency (ER) | payer OTHER ==
[2020-01-26] MEDS ORDERED: KETOROLAC TROMETHAMINE INJ/PF 30 MG/1 ML SDV IV ONE (04:31)
[2020-01-26] MEDS ORDERED: METOCLOPRAMIDE HCL INJ/PF 10 MG/2 ML SDV IV ONE (04:31)
[2020-01-26] MEDS ORDERED: DIPHENHYDRAMINE HCL 50 MG/ML VIAL IV ONE (04:32)
--- NOTE | 2020-01-26 04:55 | ER Document Report ---
ED General - General Chief Complaint: Headache Stated Complaint: HEADACHE Time Seen by Provider: 01/26/20 04:31 Primary Care Provider: DAMON LAZARO PA-C [Primary Care Provider] - Follow up as needed TRAVEL OUTSIDE OF THE [place] IN LAST 30 DAYS: No - HPI Notes: Patient is a 59-year-old male who presents to the emergency department for evaluation of a headache. Head hurts in the back of his head, and then again in the frontal area. He states this is typical of his normal headaches. He states that he gets one this bad once or twice a year. He states that nothing seems to make it better or worse. He has tried Excedrin at home. He denies any photophobia, phonophobia. No fevers or chills. No visual changes. He has no difficulty speaking or swallowing. He is moving his arms and legs without difficulty. - Related Data Allergies/Adverse Reactions: Penicillins Allergy (Unknown, Verified 01/26/20 04:13) Home Medications: Nifedipine, Entresto, pramipexole Past Medical History - General Information source: Patient - Social History Smoking Status: Current Every Day Smoker Frequency of alcohol use: None Drug Abuse: None Family History: Reviewed & Not Pertinent - Past Medical History Cardiac Medical History: Reports: Hx Hypercholesterolemia - no meds, Hx Hypertension Endocrine Medical History: Reports: Hx Diabetes Mellitus Type 1, Hx Diabetes Mellitus Type 2 Renal/ Medical History: Denies: Hx Peritoneal Dialysis Malignancy Medical History: Reports Hx Colorectal Cancer Musculoskeletal Medical History: Reports Hx Arthritis Psychiatric Medical History: Reports: Hx Anxiety, Hx Depression Past Surgical History: Reports: Hx Appendectomy, Hx Bowel Surgery - cancer, Hx Cholecystectomy - Immunizations Hx Diphtheria, Pertussis, Tetanus Vaccination: Yes Review of Systems - Review of Systems Constitutional: No symptoms reported EENT: No symptoms reported Cardiovascular: No symptoms reported Respiratory: No symptoms reported Gastrointestinal: No symptoms reported Genitourinary: No symptoms reported Musculoskeletal: No symptoms reported Skin: No symptoms reported Neurological/Psychological: See HPI -: Yes All other systems reviewed and negative Physical Exam - Vital signs Vitals: Temp Pulse Resp BP Pulse Ox 97.7 F 66 16 206/115 H 98 01/26/20 04:10 01/26/20 04:10 01/26/20 04:10 01/26/20 04:10 01/26/20 04:10 - Notes Notes: Vital signs reviewed, please refer to chart. Head is normocephalic, atraumatic. Pupils equal round, reactive to light. Neck is supple without meningismus. Heart is regular rate and rhythm. Lungs are clear to auscultation bilaterally. Abdomen is soft, nontender, normoactive bowel sounds throughout. Extremities without cyanosis, clubbing. Posterior calves are nontender. Peripheral pulses are equal. Skin is warm and dry. Patient is awake, alert, oriented x3. Cranial nerves II - XII are grossly intact without focal neurological deficits. Strength is plus 5 out of 5 bilateral upper and lower extremities. Sensation is intact. Reflexes symmetrical. Intact [id number], rapid alternating movements, [id number]. Course - Re-evaluation Re-evalutation: 01/26/20 05:26 Patient presents to the emergency department for evaluation. He has marked hypertension, but he does have a history of hypertension. I believe his elevated blood pressure was secondary to the increased pain that he was having. Patient has been taking his medications as prescribed. He admits he has not been checking his blood pressure closely, as he needs batteries for his blood pressure cuff. At any rate, he has absolutely no signs of endorgan damage. He has no chest pain, no shortness of breath. He has good oxygenation. He has a normal neurological exam. He was medicated with Toradol, Reglan, Benadryl, IV fluids. He feels significantly better. He would like to go home. I told him he needs to follow-up closely with his primary care provider in regards to his elevated blood pressure. He voiced understanding. He is to return to the emergency department with worsening or new concerning symptoms of any sort. - Vital Signs Vital signs: Temp Pulse Resp BP Pulse Ox 97.7 F 66 16 210/108 H 98 01/26/20 04:10 01/26/20 04:10 01/26/20 04:10 01/26/20 04:12 01/26/20 04:10 Discharge - Discharge Clinical Impression: Elevated blood pressure reading Migraine headache Qualifiers: Migraine type: without aura Status migrainosus presence: without status migrainosus Intractability: not intractable Qualified Code(s): G43.009 - Migraine without aura, not intractable, without status migrainosus Condition: Stable Disposition: HOME, SELF-CARE Instructions: Headache ([facility]), Toradol Injection ([facility]), Reglan ([facility]), High Blood Pressure ([facility]) Additional Instructions: Your blood pressure was markedly elevated here in the emergency department. Please follow-up with your primary care provider regarding this issue this week. Continue to take your home medications as prescribed, continue to keep a record of your blood pressures at home and bring this with you to your next primary care provider appointment. Return to the emergency department for worsening or new concerning symptoms of any sort. Referrals: DAMON LAZARO PA-C [Primary Care Provider] - Follow up as needed
[2020-01-26 05:49] VITALS: BP 186/96
== END 2020-01-26 05:41 | disposition home or self-care (01) ==
LOC: ER 04:00
DX: G43.009 Migraine without aura, not intractable, without status migrainosus (principal); I10 Essential (primary) hypertension; F17.200 Nicotine dependence, unspecified, uncomplicated; E11.9 Type 2 diabetes mellitus without complications; Z79.899 Other long term (current) drug therapy; Z85.048 Personal history of other malignant neoplasm of rectum, rectosigmoid junction, and anus; Z88.0 Allergy status to penicillin
CPT/HCPCS: 99284; 96374; 96375; J1200; J1885; J2765